=== PATIENT | male | born 1980 | race Caucasian/White ===

== ENCOUNTER 2023-08-31 19:16 | Emergency (ER) | payer MEDICAID, SELFPAY ==
[2023-08-31 19:16] VITALS: BP 145/87; PULSE 96; RESP 17; TEMP 36.1; O2SAT 99; BMI 28.3
--- NOTE | 2023-08-31 19:39 | EX.ED.VIS.EY ---
HPI History of Present Illness Chief Complaint: Eye Problem Informant: patient Onset/Context/Timing Location: Left Eye Narrative Narrative: Patient presents secondary to splashing lacquer thinner in his left eye at the end of his workday. He was cleaning up and some lacquer thinner got splashed into his left eye. He irrigated his eye with a water bottle at the time and then went to a local pharmacy and bought some eyewash and use that. He does report some burning to his left eye with some blurry vision. He does not wear glasses or contacts. He was not wearing safety goggles. [facility] Medical History (Updated 08/31/23 @ 21:[address] Criselda Flanagan MD) Substance abuse Smoker Migraines Medical History no medical history no medical history Home Medications ?Medication ?Instructions ?Recorded ?Last Taken ?Type simvastatin 40 mg/5 mL (8 mg/mL) 40 mg PO QHS 08/31/23 Unknown History oral suspension tamsulosin 0.4 mg capsule (Flomax) 0.4 mg PO DAILY 08/31/23 Unknown History Allergy/AdvReac Type Severity Reaction Status Date / Time No Known Allergies Allergy Verified 08/31/23 19:16 Surgical History (Updated 08/31/23 @ 19:53 by Michelle Friedman) History of appendectomy History of cholecystectomy Social History Smoking Status: Current every day smoker tobacco type: cigarettes ROS ROS ED Constitutional Constitutional ED: Denies chills or fever(s) Eyes Eyes: Reports change in vision left ENT ENT ED: Denies rhinorrhea Cardiovascular Cardiovascular: Denies chest pain Respiratory/Chest Respiratory/Chest: Denies dyspnea Gastrointestinal Gastrointestinal: Denies abdominal pain, nausea or vomiting Genitourinary Genitourinary ED: Denies difficulty urinating or dysuria Musculoskeletal Musculoskeletal: Denies back pain or extremity pain Integumentary Denies Abrasions or rash Neurologic Neurologic: Denies headache(s) or weakness Psychiatric Psychiatric: Denies anxiety or depression EXAM Physical Exam Const Vital Signs: 08/31/23 19:16 Temperature 97 F L Temperature Source Temporal Pulse Rate 96 Respiratory Rate 17 Blood Pressure 145/87 H Blood Pressure Mean 106 Pulse Ox 99 Oxygen Delivery Method Room Air Positive well nourished HEENT HEENT Narrative: Pupils equal and reactive. Extraocular movements intact. Mild injection noted to the left eye. Resp normal respiratory effort and clear to auscultation bilaterally Cardio regular rate and regular rhythm GI non-tender Neuro oriented x3, moves all extremities and no sensory deficits noted Motor Exam: strength 5/5 throughout Skin no wounds Lesions: no lesions MDM MDM MDM Narrative Medical decision making narrative: Tetracaine drops will be instilled to the left eye and I will be irrigated. Following this we will check the pH as well as stain his eye with fluorescein to evaluate for any uptake/corneal injury. History & Record Review Discussion w/independent historian: Patient and Significant other Treatment and Re-Evaluation Narrative: Left eye is irrigated with 500 cc of saline. pH is checked following this and is neutral at 7.4. Fluorescein is applied to the left eye. There is no evidence of fluorescein uptake. Patient discharged home and referred to ophthalmology for follow-up exam within the next 3 days. Patient comfortable with the plan. Return instructions given. Discharge Plan Triage Chief Complaint: Eye Problem ED Provider: Criselda Flanagan Dx/Rx/DC Orders Clinical Impression: Chemical injury of eye Instructions: ED Eye Exposure, Chemical Prescriptions: No Action tamsulosin [Flomax] 0.4 mg capsule 0.4 mg PO DAILY simvastatin 40 mg/5 mL (8 mg/mL) suspension 40 mg PO QHS Primary Care Provider: Arti Madrid Referrals: Ralph Escamilla MD [Med Staff - Active Staff] - 3-5 Days [facility] Doctor,Out of [Non-Staff] - Print Language: Syriac Disposition Disposition: Home, Self Care Discharge Date/Time: 08/31/23 21:59
[2023-08-31] MEDS: Tetracaine 0.5% Ophthalmic Bottle 2 DRP LEFT EYE (21:54)
[2023-08-31] MEDS: Fluorescein 1 MG STRIP 1 STRIP LEFT EYE (21:54)
[2023-08-31 21:55] VITALS: BP 131/70; PULSE 87; RESP 16; TEMP 36.7; O2SAT 97
== END 2023-08-31 21:59 | disposition home or self-care (01) ==
PROVIDERS: Emergency Provider Emergency Medicine; PCP Family Medicine; Visit Provider Emergency Medicine
DX: S05.8X2A Other injuries of left eye and orbit, initial encounter (principal); T54.91XA Toxic effect of unspecified corrosive substance, accidental (unintentional), initial encounter; H53.8 Other visual disturbances; F17.210 Nicotine dependence, cigarettes, uncomplicated; Z79.899 Other long term (current) drug therapy
CPT/HCPCS: 99284; J7030

== ENCOUNTER 2023-12-03 18:39 | Emergency (ER) | payer MEDICAID, SELFPAY ==
[2023-12-03 18:40] VITALS: BP 157/97; PULSE 85; RESP 18; TEMP 36.6; O2SAT 99; BMI 27.5
--- NOTE | 2023-12-03 19:36 | EKG12_ITS ---
Test Reason : CP Blood Pressure : / mmHG Vent. Rate : 080 BPM Atrial Rate : 080 BPM P-R Int : 154 ms QRS Dur : 098 ms QT Int : 360 ms P-R-T Axes : 061 027 032 degrees QTc Int : 415 ms Normal sinus rhythm Normal ECG Confirmed by FRANKY NARVAEZ MD ([id number]), senior editor DOE GARRISON ([id number]) on 12/06/2023 9:27:43 AM Referred By: Confirmed By:FRANKY NARVAEZ MD
[2023-12-03] MEDS: Aspirin 81 MG TAB.CHEW 324 MG PO (19:40)
[2023-12-03 20:00] LABS: Absolute Lymphocyte Count 2.18 X10^3/uL (0.83-4.51); Basophil# 0.08 X10^3/uL; Basophil% 0.8 % (0-1); Eosinophil# 0.13 X10^3/uL; Eosinophils% 1.3 % (0-5); Hematocrit 41.5 % (40-54); Hemoglobin 14.7 g/dL (13.0-16.5); Lymphocyte # 2.18 X10^3/ul (0.83-4.51); Lymphocyte % 21.1 % (19-41); Mean Corp Hgb Conc 35.4 g/dL (32-36); Mean Corpuscular Hgb 31.3 pg (27.0-32.0); Mean Corpuscular Volume 88.5 fL (80-94); Monocyte% 8.7 % (0-10); NRBC Flagged by Analyzer 0 % (0-5); Neutrophil # 6.99 X10^3/uL (2.7-7.7); Neutrophil % 67.7 % (47-70); Platelet Count 209 K/mm3 (150-450); RBC Distribution Width CV 13.1 % (11.6-14.6); RBC Distribution Width SD 41.9 fl (35.1-43.9); Red Blood Count 4.69 M/mm3 (4.6-6.2); White Blood Count 10.3 K/mm3 (4.4-11.0)
--- NOTE | 2023-12-03 20:13 | RAD_ITS ---
INDICATION: chest pain EXAMINATION/TECHNIQUE: X-RAY - XR Chest 2 Views COMPARISON: FINDINGS: LINES/DEVICES: None. LUNGS: No consolidation, edema or effusion. No pneumothorax. MEDIASTINUM AND CARDIOVASCULAR STRUCTURES: Cardiac silhouette not enlarged. Central airways and mediastinal contour are unremarkable. BONES AND SOFT TISSUES: Unremarkable. RAD/Chest PA and Lateral IMPRESSION: No radiographic evidence of acute cardiopulmonary disease. Electronically Signed: Florentino Aparicio DO at 20:24 EDT ,
--- NOTE | 2023-12-03 20:15 | ED.RN ---
Patient transported to imaging on monitor
[2023-12-03 20:19] LABS: Anion Gap 4 (5-15); BUN 14 mg/dL (7-18); BUN/Creat Ratio 17.2 RATIO (10-20); Calcium,Total 9.1 mg/dL (8.5-10.1); Chloride 110 mmol/L (98-107); Creatinine, Serum 0.81 mg/dL (0.70-1.30); EST Glomerular Filtration Rate 109 mL/min (>60); Est Glom Filt Rate - Afr Amer 132 mL/min (>60); Estimated Creatinine Clearance 115.17 ml/min; Glucose 88 mg/dL (74-106); Potassium 3.9 mmol/L (3.5-5.1); Sodium Level 140 mmol/L (136-145); Troponin-I HS 4 pg/mL (3.0-78.0)
--- OUTSIDE RECORDS SUMMARY | 2023-12-03 20:25 | XMS RPT_ITS | CCD ---
Author Organization [facility] Care Team Providers Care Foundry Engineer Name Role Phone Shiraz Echeverria Attending Unavailable Julius, Yonas Referring Unavailable Cook, Yonas Primary Care Unavailable Shiraz Echeverria Attending Unavailable Julius, Yonas Referring Unavailable Cook, Yonas Primary Care Unavailable Estiven Cobb Attending Unavailable Cook, Yonas Referring Unavailable Cook, Yonas Primary Care Unavailable Shiraz Echeverria Attending Unavailable Julius, Yonas Referring Unavailable Julius, Yonas Primary Care Unavailable Yonas Johnson Primary Care Provider Yonas Johnson DO Primary Care Provider JULIUS, YONAS Primary Care Unavailable JULIUS, YONAS Primary Care Unavailable LUCI VARELA Attending Unavailable JULIUS, YONAS Primary Care Unavailable JULIUS, YONAS Primary Care Unavailable ESTIVEN COBB Referring Unavailable ESTIVEN COBB Attending Unavailable JULIUS, YONAS Primary Care Unavailable JULIUS, YONAS Primary Care Unavailable ESTIVEN COBB Attending Unavailable JULIUS, YONAS Primary Care Unavailable Yonas Johnson MD Primary Care Provider YONAS JOHNSON Primary Care Unavailable SHARDA NIEVES Attending Unavailable HILL HAINES Admitting Unavailable YONAS JOHNSON Primary Care Unavailable JEAN MARIE RICARDO Attending Unavailable YONAS JOHNSON Primary Care Unavailable Allergies Allergy Classification Reported Allergen(s) Allergy Type Date of Onset Reaction(s) Facility (5 sources) Codeine; Translations: [CODEINE] Drug Allergy 06-29-19 04 [facility] Work Phone: (1 source) Amitriptyline Drug Allergy 10-08-19 22 [facility] Work Phone: (1 source) Amoxicillin Drug Allergy 10-08-19 22 Nausea And Vomiting [facility] (1 source) Sulfamethoxazole / Trimethoprim Drug Allergy 10-08-19 [facility] Work Phone: (1 source) Budesonide-Formotero l Fumarate Propensity to adverse reactions to drug 10-08-19 Dizziness or Vertigo [facility] Work Phone: Medications Current Medications Medication Drug Class(es) Dates Sig (Normalized) Sig (Original) acetaminophen 325 mg / oxyCODONE hydrochloride 5 mg oral tablet (1 source) Opioid Agonist Start: 10-15-2021 End: 10-20-2021 oxyCODONE-acetamino phen (PERCOCET) 5-325 MG per tablet Indications: Soft tissue mass Take 1 tablet by mouth every 6 hours as needed for Pain for up to 5 days. Intended supply: 5 days. Take lowest dose possible to manage pain 5 tablet 0 10/15/2021 10/20/2021 Active ALPRAZolam 0.25 mg disintegrating oral tablet (1 source) Benzodiazepine Start: 10-15-2021 ALPRAZolam (NIRAVAM) dissolvable tablet 0.25 mg calcium chloride 0.0014 meq/ml / potassium chloride 0.004 meq/ml / sodium chloride 0.103 meq/ml / sodium lactate 0.028 meq/ml injectable solution (2 sources) Start: 10-15-2021 lactated ringers infusion cephalexin 500 mg oral capsule (1 source) Cephalosporin Antibacterial Start: 09-30-2021 take 1 capsule by mouth every twelve hours cephALEXin (KEFLEX) 500 MG capsule TAKE 1 CAPSULE BY MOUTH EVERY 12 HOURS FOR 15 DAYS 0 09/30/2021 Active 1 ml diphenhydrAMINE hydrochloride 50 mg/ml cartridge (1 source) Histamine-1 Receptor Antagonist Start: 10-15-2021 End: 10-15-2021 diphenhydrAMINE (BENADRYL) injection 12.5 mg 1 ml HYDROmorphone hydrochloride 1 mg/ml cartridge (2 sources) Opioid Agonist Start: 10-15-2021 HYDROmorphone (DILAUDID) injection 0.5 mg Start: 10-15-2021 HYDROmorphone (DILAUDID) injection 0.25 mg labetalol (NORMODYNE;TRANDATE) injection 5 mg (1 source) Start: 10-15-2021 labetalol (NORMODYNE;TRANDATE) injection 5 mg 10 ml lidocaine hydrochloride 10 mg/ml injection (1 source) Antiarrhythmic , Amide Local Anesthetic Start: 10-15-2021 End: 10-15-2021 lidocaine PF 1 % injection 1 mL 1 ml meperidine hydrochloride 25 mg/ml cartridge (1 source) Opioid Agonist Start: 10-15-2021 meperidine (DEMEROL) injection 12.5 mg Multiple Vitamins-Minerals (MULTIVITAMIN & MINERAL PO) (2 sources) Multiple Vitamins-Minerals (MULTIVITAMIN & MINERAL PO) Take by mouth 0 Active 2 ml ondansetron 2 mg/ml injection (1 source) Serotonin-3 Receptor Antagonist Start: 10-15-2021 End: 10-15-2021 ondansetron (ZOFRAN) injection 4 mg oxyCODONE (1 source) Opioid Agonist Start: 10-15-2021 End: 10-15-2021 oxyCODONE (ROXICODONE) immediate release tablet 5 mg simvastatin 40 mg oral tablet (1 source) HMG-CoA Reductase Inhibitor Start: 09-22-2021 take 1 tablet by mouth once daily at bedtime simvastatin (ZOCOR) 40 MG tablet TAKE 1 TABLET BY MOUTH ONCE DAILY AT BEDTIME 0 09/22/2021 Active 5 ml sodium chloride 9 mg/ml injection (9 sources) Start: 10-15-2021 0.9 % sodium chloride bolus Start: 10-15-2021 0.9 % sodium c hloride infusion Start: 10-15-2021 sodium chlorid e flush 0.9 % injection 5-40 mL tamsulosin hydrochloride 0.4 mg oral capsule (3 sources) alpha-Adrenergic Evelyn Start: 04-30-2023 take 1 capsule by mouth once daily tamsulosin (FLOMAX) 0.4 mg Take 1 capsule by mouth once daily. 30 capsule 04/30/2023 Active Start: 09-22-2021 take 1 capsule by mo [facility] once daily tamsulosin (FLOMAX) 0.4 MG capsule TAKE 1 CAPSULE BY MOUTH ONCE DAILY 0 09/22/2021 Active therapeutic multivitamin-min erals (THERA-M PLUS) 9 mg iron-400 mcg tablet (2 sources) therapeutic mult ivitamin-minerals (THERA-M PLUS) 9 mg iron-400 mcg tablet Take 1 tablet by mouth once daily. Active Completed/Discontinued Medications Medication Drug Class(es) Dates Sig (Normalized) Sig (Original) acetaminophen 500 mg oral tablet (1 source) Start: 10-15-2021 End: 10-15-2021 acetaminophen (TYLENOL) tablet 1,000 mg Start: 10-15-2021 End: 10-15-2021 acetaminophen (TYLENOL) tabl et 1,000 mg famotidine 20 mg oral tablet (1 source) Histamine-2 Receptor Antagonist Start: 10-15-2021 End: 10-15-2021 famotidine (PEPCID) tablet 20 mg polyethylene glycol 3350 893385 mg / potassium chloride 2970 mg / sodium bicarbonate 6740 mg / sodium chloride 5860 mg / sodium sulfate 96727 mg powder for oral solution (1 source) Osmotic Laxative Start: 10-25-2023 End: 10-25-2023 peg 3350-Electrolytes (GOLYTELY) 236-22.74-6.74 -5.86 gram suspension Indications: Encounter for screening for malignant neoplasm of colon Take 4,000 mL by mouth one time only for 1 dose. Refer to printed prep instructions from your provider. 4000 mL 10/25/2023 10/25/2023 Problems Active Problems Problem Classification Problem Date Documented Da te Episodic/Chronic Allergic reactions (4 sources) Allergy status to other drugs, medicaments and biological substances status; Translations: [Allergy status to narcotic agent status] Onset: 08-19-2017 Episodic External cause codes: Struck by; against (2 sources) Striking against or struck by other objects, initial encounter; Translations: [Striking against or struck by other objects, init encntr] Onset: 02-09-2018 Open wounds of extremities (2 sources) Puncture wound without foreign body, right foot, initial encounter; Translations: [Puncture wound without foreign body, right foot, init encntr] Onset: 02-09-2018 Episodic Other connective tissue disease (2 sources) Presence of unspecified orthopedic joint implant; Translations: [Presence of unspecified orthopedic joint implant] Onset: 02-09-2018 Chronic Other connective tissue disease (2 sources) Pain in right foot; Translations: [Pain in right foot] Onset: 02-09-2018 Episodic Other connective tissue disease (1 source) Mass of soft tissue; Translations: [Other specified soft tissue disorders] Episodic Other screening for suspected conditions (not mental disorders or infectious disease) (1 source) Patient encounter status; Translations: [Encounter for screening for malignant neoplasm of colon] 10-25-2023 Episodic Residual codes; unclassified (2 sources) Acquired absence of other specified parts of digestive tract; Translations: [Acquired absence of other specified parts of digestive tract] Onset: 02-09-2018 Episodic Substance-related disorders (4 sources) Nicotine dependence, cigarettes, uncomplicated; Translations: [Nicotine dependence, unspecified, uncomplicated] Onset: 08-19-2017 Chronic Unclassified (2 sources) Addiction Problem; Translations: [Addiction Problem] Onset: 06-10-2023 Past or Other Problems Problem Classification Problem Date Documented Date Episodic/Chronic Abdominal hernia (2 sources) Right inguinal hernia ; Translations: [Unilateral inguinal hernia, without obstruction or gangrene, not specified as recurrent] Onset: 11-16-2014 11-16-2014 Episodic Other connective tissue disease (2 sources) Pain in right hand; Translations: [Pain in right hand] Onset: 08-19-2017 Episodic Residual codes; unclassified (1 source) Postoperative state; Translations: [Other specified postprocedural states] Onset: 12-05-2014 Resolved: 11-04-2017 11-04-2017 Episodic Residual codes; unclassified (1 source) Postoperative state; Translations: [Post-operative state] Onset: 12-05-2014 Resolved: 11-04-2017 11-04-2017 Septicemia (except in labor) (3 sources) Sepsis; Translations: [Sepsis, unspecified organism] Onset: 04-28-2023 Resolved: 09-11-2023 09-11-2023 Episodic Skin and subcutaneous tissue infections (7 sources) Cellulitis, unspecified; Translations: [Cellulitis of right upper limb] Onset: 08-18-2017 Episodic Urinary tract infections (1 source) Urinary tract infection, site not specified; Translations: [Sepsis secondary to UTI (HCC) (HCC)] Onset: 04-28-2023 Episodic Results Test Name Value Interpretation Reference Range [facility] ([facility] ) PABLITO SOLIMNA ([id number]) 1980 M Date Time Provider Department 10/25/23 3:30 PM SHARDA NIEVES During your visit today, we recorded the following information about you: Temperature Pulse Respiration Blood pressure 98.2 degrees 96/minute 14/minute 130/86 Weight Height 83.9 kg 1.753 m Sharda Nieves APRN.CNP 10/26/2023 8:28 AM Signed HISTORY AND PHYSICAL Pablito Soliman : 1980 REFERRING PHYSICIAN: No referring provider defined for this encounter. CHIEF COMPLAINT: Patient presents with: Consult HPI: Pablito is a 42 year old male referred for endoscopy. Pablito notes due for screening colonoscopy. Pablito denies abdominal pain.. Pablito notes occasional diarrhea. +hx of cholecystectomy bowels are frequent and soft depending on what he eats, specifically greasy foods Pablito denies constipation. Pablito denies a change in bowel habits. Pablito denies melena. Pablito denies bright red blood per rectum. Pablito denies hemorrhoids. Pablito denies heartburn. Pablito denies dysphagia. Pablito denies a history of ulcers/ peptic ulcer disease. +hx of esophageal dilatation- denies any similar symptoms currently Denies family history of colon issues. Hx of IV drug abuse AND meth use- pt was admitted to the hospital in April 2023 for sepsis and patient has been drug free since. Pablito has undergone prior endoscopy. Had an EGD with dilatation completed with [facility] in the past- we have requested these records. No colonoscopy Current Outpatient Medications Medication Sig tamsulosin (FLOMAX) 0.4 mg Take 1 capsule by mouth once daily. therapeutic multivitamin-minerals (THERA-M PLUS) 9 mg iron-400 mcg tablet Take 1 tablet by mouth once daily. No current facility-administered medications for this visit. ALLERGIES: Codeine PAST MEDICAL HISTORY Diagnosis Date ADHD Depression Drug abuse and dependence (HCC) Sober since April 2023 PAST SURGICAL HISTORY Procedure Laterality Date APPENDECTOMY Around 18 years old EXTRACTION ERUPTED TOOTH/EXR All four FOOT SURGERY HX FOOT SURGERY HX Right Two surgeries FOOT SURGERY HX Left One surgery HAND SURGERY HX Right REMOVAL GALLBLADDER REPAIR OF SHOULDER Left Three surgeries FAMILY HISTORY Problem Relation Age of Onset No Known Problems Mother No Known Problems Father No Known Problems Brother No Known Problems Maternal Grandmother No Known Problems Maternal Grandfather No Known Problems Paternal Grandmother No Known Problems Paternal Grandfather Social History Tobacco Use Smoking status: Former Types: Cigarettes Smokeless tobacco: Never Vaping Use Vaping status: current everyday user Substances: Nicotine, Flavoring Devices: Disposable Substance Use Topics Alcohol use: Not Currently Drug use: Not Currently Types: Marijuana, Crystal Meth, Cocaine, Heroin Comment: Sober for April 2023 REVIEW OF SYMPTOMS: The review of systems data was entered by the nurse and reviewed by pr Nursing Notes: Yolande Burgos LPN 10/25/2023 3:52 PM Signed REVIEW OF SYSTEMS: General: The patient denies fatigue, denies weight loss, denies weight gain, denies feeling hot, and denies feelings of cold. Eyes: The patient denies glaucoma, denies eye injury/surgery, does not wear glasses or contacts. Ear/Nose/Throat: The patient notes allergies, notes hayfever, denies ear infections, and denies bloody noses. Cardiovascular: The patient denies chest pain, denies heart disease, denies high blood pressure,denies cardiac stent, denies prior heart attack, denies irregular heart beat, notes high cholesterol, denies poor circulation, denies heart failure, other cardiac issues, denies claudication, denies cold feet, denies peripheral arterial stent. Respiratory: The patient denies tuberculosis, denies pneumonia, denies frequent cough, denies pulmonary embolism, denies shortness of breath, and denies coughing up blood. Gastrointestinal: The patient denies difficulty swallowing, denies acid reflux, denies ulcers, denies vomiting, denies jaundice/hepatitis, denies gallbladder problems, denies black or tarry stools, denies hemorrhoids, denies bleeding from rectum, denies diverticulitis, denies constipation, denies diarrhea, denies loss of stool control, and notes hernias. Kidney/Bladder: The patient denies kidney stones, denies urine infections, and denies bloody urine. Skin: The patient denies a history of skin cancer, denies bleeding/changing moles, and denies a history of skin rash. Neurologic: The patient denies a history of epilepsy/convulsions, denies headaches, denies head/spinal injuries, and denies stroke/TIA. Psychiatric: The patient denies psychiatric medications, notes depression, and denies voices, notes history of substance abuse. Endocrine: The patient denies thyroid disorders, de (more content not included)... [facility] Note created in error [facility] 36 Note created in error [facility] Progress Noteon 06-21-2023 Progress Note Clinician called Pt on 06/21/23 coordinated care. Pt disclosed that he would have to delay start date of transfer from AM CD IOP to PM CD IOP due to scheduling issues. Pt reports that he would return call to clinician regarding updates to his availability. [facility] [id number] 06-10-2023 [id number] Admission Certification I certify that this patient would require a higher level of care if intensive outpatient program (IOP) services were not provided, that the patient needs a minimum of 9 hours of IOP services per week, that the services will be furnished under the care of a physician, and under a written plan of treatment authorized and approved by the physician. [facility] Behavioral Health Treatment Planon 06-10-2023 Behavioral Health Treatment Plan Initial Level of Care Placed: 2.1 Family Members/Friends Who Can Be Involved In Treatment Name Relationship Release obtained? (if no, explain) None Services Service(s) Provided (if group, include name) Primary Provider Frequency Date Added Discharge Date Addiction Med IOP DENISE Sapp 9 hours per week 06/10/23 Individual and/or Family Therapy DENISE Sapp As clinically needed 06/10/23 Urine Drug Screen DENISE Sapp Once weekly; random 06/10/[address] Monitoring [address]. Alberts Admission 06/10/23 Consideration for Discharge: Improve Level of Functioning and Decrease Symptoms [facility] CARECOORDon 06-10-2023 CARECOORD Admission Note Substance Abuse IOP Date: 06/10/2023 Start Time: 530p End Time: 530p Pt admitted to Substance Abuse IOP on this date. He reported understanding and agreement with Pt rights/responsibilitie s, group rules/expectations, and confidentiality. He signed all consents for Tx. Reviewed presenting problem and goals for Tx with the Pt. 3 Treatment Plan problems developed with the Pt and opened. Pt was oriented to the unit and daily group paperwork. He is scheduled to begin in the group this evening at 5:30pm. Can patient identify as being an alcoholic/addict? Yes Does patient verbalize understanding of the disease concept of addiction? Yes Is the patient willing to commit to abstinence? Yes Does He accept responsibility for the addiction? Yes Is He able to identify and process warning signs and triggers for possible relapse? No Does the patient have complicated psychiatric or medical issues? No Do they have a plan in place to address these issues? N/A Is the patient med-compliant? Yes Does the patient have a sober support system? No Are any of these supports engaged in, or oriented to, 12-Step programming? N/A Do they have a sponsor? No If yes, how often do they talk to their sponsor? na Are they attending regular 12-Step meetings? Yes; How many/week? unknown Can they identify high risk situations? No Can they identify warning signs and triggers? No Can they identify coping skills for recovery? No [facility] OUT[facility] PHYSICIAN ORDERS Admit to: [] Partial Hospitalization Program [] Psych Intensive Outpatient Program [x] Addiction Medicine Intensive Outpatient Program []Relapse Prevention - Psych [] Recovery Readiness []Relapse Prevention - Addiction [] Impaired Professionals Aftercare with individual sessions [] Other: 2. Client to attend: []Day [x]Evening []Afternoon # of sessions per week: 3 Anticipated Length of Stay: 16-20 Sessions 3. This level of care is needed: [x] To reduce or control psychiatric symptoms to prevent relapse of hospitalization [x] To improve Client's level of functioning [] To maintain current level of functioning [] To accurately diagnose client condition [x] Because there is a reasonable expectation that improvement will result with this level of care 4. Admitting Diagnosis(es): F15.20 5. Allergies: Patient has no known allergies. 6. Client to Attend and Participate in the following activities: [x] Group Therapy [x] Education relevant to client condition [] Individualized Activity Therapy [x] Individual Therapy as needed [x] Family Therapy as needed [] Other (please identify): 7. Lab Work: [] CBC [] TSH [] U/A [] Urine HcG<55 with intact uterus [] GTT [] Valproic Acid Level on DATE [] Depakote Level on NA [] Pierz Level on DATE [] Other: NA 8. Urine Drug Screening: [x] on admission [x] random [] frequency (identify): for the following substances: amphetamines, barbiturates, benzodiaepines, cocaine, methadone, opiates, oxycodone/oxymorphone, PCP, buprenorphine screen, THC-MTTHC, fentanyl and ethanol. Rationale for UDS: [x] Monitoring sobriety/level of use [x] Treatment compliance [x] Behavioral Indicators [] Other (identify): 9. Breathalyzer: [] on admission [x] random [] frequency (identify): 9. Additional: 10. Physician: Normal [facility] ETHYL GLUCURONIDE SCREEN, UR INEon 06-10-2023 ETHYL GLUCURONIDE, URINE Negative Normal Negative [facility] Comment on above: Result Comment: CATRACHITO Dumont COMMENTS: Ethyl Glucuronide has been screened by Immunoassay at a 500 ng/mL threshold. POSITIVE results are not confirmed by a more specific alternative method unless requested. If confirmation is needed, request confirmation under separate order. NOTE: These results are for medical treatment only. Analysis performed using non-forensic procedures. This test has not been cleared by the [place] Food and Drug Administration (FDA). The FDA has determined that such clearance or approval is not necessary. The performance characteristics have been determined by the clinical laboratories of [facility]. Performed By: #### L [id number], [id number] ####Banking Representative: PERNELL ZAVALA ([id number])[address] GROUPNOTEon 06-10-2023 GROUPNOTE [facility] Group Therapy Documentation Program: Addiction Medicine Intensive Outpatient Program Group Type: Addiction IOP Group Date: 06/10/2023 Facilitators: Skye Bloom Department: [facility] Addiction IOP Group No: 1 Start Time: 5:30 PM No. of Participants: 7 End [facility]: [facility] Topic: Treatment Progress Review Summary of Group Activity: Patient reviewed treatment plans and shared how they know they are making progress. Patients then completed check in. Patient's level of participation in group process: Engaged in group process and Interactive with other group members Therapeutic Intervention utilized with Patient: Empathic listening, Cognitive Behavioral Therapy (CBT), and Motivational interviewing techniques Patient's Response to Intervention: Patient introduced himself to the group and shared about his ongoing court issues. He cited legal issues as a barrier to finding employment. Mental Status Exam: Affect and Mood: appropriate Behavior: Pleasant, Cooperative, Engaging, and Interactive Cognition: Intact and Oriented X4 Additional comments: na Progress Towards Goals: Moderate Next Step(s): Continue with current services Additional Comments (optional): Late arrival no billing Group No: 2 Start Time: 630p No. of Participants: 7 End Time: 720p Group Topic: 28 Days Summary of Group Activity: Patients watched film on stage of change and discussed relatable content. TN was used to encourage change thinking through discussion about the main characters changes in thinking. Patient's level of participation in group process: Engaged in group process Therapeutic Intervention utilized with Patient: Motivational interviewing techniques Patient's Response to Intervention: Patient was attentive to film and interacted with peers Mental Status Exam: Affect and Mood: appropriate Behavior: Pleasant, Cooperative, Engaging, and Interactive Cognition: Intact and Oriented X4 Additional comments: na Progress Towards Goals: Moderate Next Step(s): Continue with current services Additional Comments (optional): Group No: 3 Start Time: 730p No. of Participants: 7 End Time: 8:20 PM Group Topic: 28 days Summary of Group Activity: Patients watched film on stage of change and discussed relatable content. TN was used to encourage change thinking through discussion about the main characters changes in thinking. Patients engaged in weekend planning. Patient's level of participation in group process: Engaged in group process Therapeutic Intervention utilized with Patient: Motivational interviewing techniques Patient's Response to Intervention: Patient is going to [employer] and attending a meeting this weekend. Mental Status Exam: Affect and Mood: appropriate Behavior: Pleasant, Cooperative, Engaging, and Interactive Cognition: Intact and Oriented X4 Additional comments: na Progress Towards Goals: Moderate Next Step(s): Continue with current services Additional Comments (optional): Normal [facility] T PANELon 06-10-2023 Amphetamines Ql (U) Negative Normal Negative [facility] Comment on above: Performed By: #### L [id number], [id number] ####Banking Representative: PERNELL ZAVALA ([id number])[facility] [place] [address] BARBITURATES Negative Normal Negative [facility] Comment on above: Performed By: #### L [id number], [id number] ####Banking Representative: PERNELL ZAVALA ([id number])[facility] ([facility])[address] [place] [address] Benzodiazepines Ql (U) Negative Normal Negative [facility] Comment on above: Performed By: #### L [id number], [id number] ####Banking Representative: PERNELL ZAVALA ([id number])[facility] ([facility])[address] [place] [address] BUPRENORPHINE SCREEN Negative Normal Negative [facility] Comment on above: Performed By: #### L [id number], [id number] ####Banking Representative: PERENLL ZAVALA ([id number])[facility] ([facility])[address] [place] [address] Cocaine Ql (U) Negative Normal Negative [facility] Comment on above: Performed By: #### L [id number], [id number] ####Banking Representative: PERNELL ZAVALA ([phone])[facility])[address] [place] [address] ETHANOL-ETOHO Negative Normal Negative [facility] Comment on above: Result Comment: ORDArnav R COMMENTS: The expected value for the drugs listed above is Negative. The following drugs or drug groups have been screened for by Immunoassay at the following thresholds: Amphetamine class(1000ng/mL) Barbituates(200ng/mL) Benzodiazepines(200ng/mL) Cocaine(300ng/mL) Ethanol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 Hospitalization: Treatment Team: Attending Provider: Jean Marie Ricardo MD Primary Service: MENDY De La Paz Patient Condition @ Discharge: Excellent Discharge Disposition: Home/Self Care PHYSICAL EXAM: Discharge Physical Exam: VITAL SIGNS: BP 125/76 Pulse 72 Temp 36.5 ?C (97.7 ?F) (Oral) Resp 16 Ht 175.3 cm (5' 9 ) Wt 86.2 kg (190 lb) SpO2 98% BMI 28.06 kg/m? GENERAL: Alert, no distress, cooperative SKIN: Skin color, texture, turgor normal. No rashes or lesions. Information Provided to Patient: Given at bedside Discharge Medications: Please see After Visit Summary Med Reconciliation for accurate list of discharge medications. If any questions please contact discharging physician. Future Appointments: Follow Up with PCP: Yonas Johnson, DO Appointments for Next 45 Days None TIME OF CARE : The physician spent 45 minutes was spent in coordinating this discharge including time spent educating patient, examining patient, ordering medications, and completing necessary paperwork SIGNATURE: Jean Marie Ricardo MD PATIENT NAME: Pablito Soliman DATE: April 30, 2023 TIME: 1:15 PM PAGER/CONTACT #: Elviar Keren Alexis [facility] ED NOTEon 04-29-2023 ED NOTE HNO ID: [id number] Author: CHERELLE CROUCH Tech Service: Emergency Medicine Author Type: Civil Engineering Technician Type: ED Notes Filed: 04/29/2023 17:06 Note Text: Pt given dinner tray Reuben [facility] HISTORY PHYSICALon HISTORY PHYSICAL HNO ID: [id number] Author: HILL HAINES DO Service: Hospital Medicine Author Type: Physician Type: H&P Filed: 04/29/2023 14:44 Note Text: DEPARTMENT OF HOSPITAL MEDICINE HISTORY AND PHYSICAL EXAM SERVICE DATE: 04/29/2023 SERVICE TIME: 0700 Primary Care Physician: Yonas Johnson DO NIGHT AND WEEKEND COVERAGE: [place] COVERAGE: After 7pm, please call cross cover pager #[phone] Subjective CHIEF COMPLAINT: Dysuria and back pain HPI: This is a 42 year old male with BPH, HLD who presents with whole body aches and difficulty peeing. About 1 week ago lower back pain that worsened 2 days ago that his whole body hurt and felt really sick. Urine dark orange, difficultly starting urine. Pain with urination. No cough, SOB, or chest pain Does use IV drugs. Trying to stop. Meth use. Uses clean needles. No erythema of skin. A sepsis alert was initiated on the patient as the patient was noted to be tachycardic, and have an elevated blood cell count with a urinary tract source of infection. The patient was given IV fluids, analgesia, started on IV antimicrobial therapy with ceftriaxone. CT imaging of the abdomen and pelvis shows no acute abnormality. There are punctate bilateral intrarenal calculi that are not complicating. No hydronephrosis. No perinephric stranding. Prostate gland is enlarged. There is no obvious bladder mass or calculus. No past medical history on file. PAST SURGICAL HISTORY Procedure Laterality Date FOOT SURGERY HX No family history on file. Social History Tobacco Use Smoking status: Never Substance Use Topics Alcohol use: No Drug use: No MEDICATIONS: Reviewed (Not in a hospital admission) ALLERGIES Allergen Reactions Codeine REVIEW OF SYSTEM: ROS reviewed Objective PHYSICAL EXAM: BP 125/69 Pulse 83 Temp (Src) 97.8 (Oral) Resp 16 Ht 5' 9 (1.75m) Wt 185 lb (83.9kg) SpO2 98% BMI 27.31 kg/(m2). O2 Therapy: Room Air Physical Exam Performed: General: NAD, well developed, vitals as above HENT: Normocephalic, atraumatic, mucous membranes moist Eyes: No scleral icterus, extraocular movements intact, Conjuctivae normal, PERRL Cardiovascular: RRR, No murmur, no gallops, radial pulses 2+ bilaterally, no edema Pulmonary: Respiratory effort normal, no resp distress. CTAB, no wheezes, rhonchi or rales. Abdominal: No distention, abdomen soft. No mass. Mild to palpation suprapubic MSK: normal range of motion, no joint swelling Skin: Warm and dry Neurological: No focal deficits presents. CN 2-12 grossly intact. Psych: Alert, oriented x 3, appropriate mood Lines, Drains, and Airways Line Duration Peripheral 04/28/231952 [facility] Left Antecubital 20 Gauge <1 day DATA: Diagnostic tests reviewed for today's visit: Most recent labs and imaging results. Assessment/Plan Principal Problem: Sepsis (HCC) (POA: Yes) Assessment AND Plan: Secondary to complicated UTI/prostatitis Continue ceftriaxone 2 g and monitor cultures. Hx of prostatitis in past treated outpatient. IVDA - in groups and counseling. Working on quitting, encouraged HLD - simvastatin 40 daily BPH - flomax 0.4, did have urology outpatient at one point, recommend f/u given enlarged prostate and recurrent prostatitis Resolved Problems: * No resolved hospital problems. * Medication and Non-Pharmacologic VTE Prophylaxis/Anticoagul ants Anticoagulant AND Antiplatelet Medications (From admission, onward) Start Dose Route Frequency Last Action Ordered Stop 04/29/23 0900 enoxaparin 40 mg injection (LOVENOX) (Medical Risk Categories) 40 mg SUBCUTANEOUS EVERY 24 HOURS Given, 04/28 1014 04/29/23 0848 -- VTE Prophylaxis: VTE prophylaxis appropriate Disposition: Home Plan of care discussed with: Provider, RN, Patient SIGNATURE: Hill Haines DO PATIENT NAME: Pablito Soliman DATE: April 29, 2023 TIME: 2:16 PM etx [id number] Normal [facility] ALLIED HEALTHon 04-28-2023 ALLIED HEALTH HNO ID: [id number] Author: TERRENCE MADSEN RT(R) Service: Radiology Author Type: Technologist Type: Allied Health Filed: 04/28/2023 20:14 Note Text: Radiology Service Progress Note PATIENT NAME: Pablito Soliman DATE OF SERVICE: April 28, 2023 TIME: 8:14 PM PATIENT IDENTITY VERIFICATION COMPLETED USING TWO (2) IDENTIFIERS: Name and Date of confirmed by patient verbally and Name and Date of confirmed by identification band. FALL SCREENING: Has the patient had 2 falls in the last year or 1 fall with injury or currently using an Ambulatory Assistive Device (Walker, Cane, Wheelchair, Crutches, etc.)? Emergency Room Patient: Screened in ED PATIENT GENDER DATA: Male PATIENT RELEVANT IMPLANT DATA REVIEWED: Yes PATIENT PRESENTS WITH AN IMPLANTABLE OR ATTACHED PATTERN WEAVER: No RADIOLOGY DEPARTMENT: CT; Exam(s) Completed: Abdomen/Pelvis PERIPHERAL IV DATA: Inpatient: see LDA documentation SIGNED BY: Terrence Madsen RT(R) April 28, 2023 8:14 PM Normal [facility] Bacteria Bld Culton 04-28-19 24 Bacteria identified Cx Nom (Bld) CULTURE, BLOOD: No growth 5 days Normal [facility] Comment on above: Performed By: #### 5 8410-2 #### [facility] CLIA [id number] [address] [place] [address] Performed By: #### 2 4321-2 #### [facility] CLIA [id number] [address] CBC W Auto Differential pane l (Bld)on 04-28-2023 Basophils (Bld) [#/Vol] 0.06 10*3/uL Normal <0.11 [facility] Comment on above: Order Comment: Speci men Type: BLOOD SPECIMEN Ordering Facility: [facility] Address: [address] [place] [address] Performed By: #### 5 7021-8 #### [facility] CLIA [id number] [address] [place] [address] Basophils/100 WBC (Bld) 0.3 % Normal [facility] Comment on above: Order Comment: Speci men Type: BLOOD SPECIMEN Ordering Facility: [facility] Address: [address] [place] [address] Performed By: #### 5 7021-8 #### [facility] CLIA [id number] [address] [place] [address] Differential cell count method Nom (Bld) Auto Normal [facility] Comment on above: Order Comment: Speci men Type: BLOOD SPECIMEN Ordering Facility: [facility] Address: [address] [place] [address] Performed By: #### 5 7021-8 #### [facility] CLIA [id number] [address] OF [facility] Eosinophils (Bld) [#/Vol] 10*3/uL Normal <0.46 [facility] Comment on above: Order Comment: Speci men Type: BLOOD SPECIMEN Ordering Facility: [facility] Address: [address] [place] [address] Performed By: #### 5 7021-8 #### [facility] CLIA [id number] [address] Eosinophils/100 WBC (Bld) 0.0 % Normal [facility] Comment on above: Order Comment: Speci men Type: BLOOD SPECIMEN Ordering Facility: [facility] Address: [address] [place] [address] Performed By: #### 5 7021-8 #### [facility] CLIA [id number] [address] Erythrocyte distribution width (RBC) [Ratio] 13.2 % Normal 11.5-15.0 [facility] Comment on above: Order Comment: Speci men Type: BLOOD SPECIMEN Ordering Facility: [facility] Address: [address] [place] [address] Performed By: #### 5 7021-8 #### [facility] CLIA [id number] [address] Hematocrit (Bld) [Volume fraction] 41.0 % Normal 39.0-51.0 [facility] Comment on above: Order Comment: Speci men Type: BLOOD SPECIMEN Ordering Facility: [facility] Address: [facility] [place] [place] [address] Performed By: #### 5 7021-8 #### [facility] CLIA [id number] [address] [place] [address] [place] Hemoglobin (Bld) [Mass/Vol] 14.3 g/dL Normal 13.0-17.0 [facility] Comment on above: Order Comment: Speci men Type: BLOOD SPECIMEN Ordering Facility: [facility] Address: [address] [place] [address] Performed By: #### 5 7021-8 #### [facility] CLIA [id number] [address] [place] Immature granulocytes (Bld) [#/Vol] 0.15 10*3/uL High <0.10 [facility] Comment on above: Order Comment: Speci men Type: BLOOD SPECIMEN Ordering Facility: [facility] Address: [address] [place] [address] Performed By: #### 5 7021-8 #### [facility] CLIA [id number] [address] Immature granulocytes/100 WBC (Bld) 0.6 % Normal [facility] Comment on above: Order Comment: Speci men Type: BLOOD SPECIMEN Ordering Facility: [facility] Address: [address] [place] [address] Performed By: #### 5 7021-8 #### [facility] CLIA [id number] [address] [place] Lymphocytes (Bld) [#/Vol] 1.17 10*3/uL Normal 1.00-4.00 [facility] Comment on above: Order Comment: Speci men Type: BLOOD SPECIMEN Ordering Facility: [facility] Address: [address] [place] [address] Performed By: #### 5 7021-8 #### [facility] CLIA [id number] [address] [place] Lymphocytes/100 WBC (Bld) 5.0 % Normal [facility] Comment on above: Order Comment: Speci men Type: BLOOD SPECIMEN Ordering Facility: [facility] Address: [address] [place] [address] Performed By: #### 5 7021-8 #### [facility] CLIA [id number] [address] MCH (RBC) [Entitic mass] 30.4 pg Normal 26.0-34.0 [facility] Comment on above: Order Comment: Speci men Type: BLOOD SPECIMEN Ordering Facility: [facility] Address: [address] [place] [address] Performed By: #### 5 7021-8 #### [facility] CLIA [id number] [address] [place] MCHC (RBC) [Mass/Vol] 34.9 g/dL Normal 30.5-36.0 [facility] Comment on above: Order Comment: Speci men Type: BLOOD SPECIMEN Ordering Facility: [facility] Address: [address] [place] [address] Performed By: #### 5 7021-8 #### [facility] CLIA [id number] [address] MCV (RBC) [Entitic vol] 87.0 fL Normal 80.0-100.0 [facility] Comment on above: Order Comment: Speci men Type: BLOOD SPECIMEN Ordering Facility: [facility] Address: [address] [place] [address] Performed By: #### 5 7021-8 #### [facility] CLIA [id number] [address] Monocytes (Bld) [#/Vol] 1.42 10*3/uL High <0.87 [facility] Comment on above: Order Comment: Speci men Type: BLOOD SPECIMEN Ordering Facility: [facility] Address: [address] [place] [address] Performed By: #### 5 7021-8 #### [facility] CLIA [id number] [address] Monocytes/100 WBC (Bld) 6.1 % Normal [facility] Comment on above: Order Comment: Speci men Type: BLOOD SPECIMEN Ordering Facility: [facility] Address: [address] [place] [address] Performed By: #### 5 7021-8 #### [facility] CLIA [id number] [address] [place] Neutrophils (Bld) [#/Vol] 20.57 10*3/uL High 1.45-7.50 [facility] Comment on above: Order Comment: Speci men Type: BLOOD SPECIMEN Ordering Facility: [facility] Address: [address] [place] [address] Performed By: #### 5 7021-8 #### [facility] CLIA [id number] [address] [place] Neutrophils/100 WBC (Bld) 88.0 % Normal [facility] Comment on above: Order Comment: Speci men Type: BLOOD SPECIMEN Ordering Facility: [facility] Address: [address] [place] [address] Performed By: #### 5 7021-8 #### [facility] CLIA [id number] [address] [place] Nucleated RBC (Bld) [#/Vol] 10*3/uL Normal <0.01 [facility] Comment on above: Order Comment: Speci men Type: BLOOD SPECIMEN Ordering Facility: [facility] Address: [address] [place] [address] Performed By: #### 5 7021-8 #### [facility] CLIA [id number] [address] Nucleated RBC/100 WBC (Bld) [Ratio] 0.0 /100 WBC Normal [facility] Comment on above: Order Comment: Speci men Type: BLOOD SPECIMEN Ordering Facility: [facility] Address: [address] [place] [address] Performed By: #### 5 7021-8 #### [facility] CLIA [id number] [address] [place] Platelet mean volume (Bld) [Entitic vol] 10.6 fL Normal 9.0-12.7 [facility] Comment on above: Order Comment: Speci men Type: BLOOD SPECIMEN Ordering Facility: [facility] Address: [address] [place] [address] Performed By: #### 5 7021-8 #### [facility] CLIA [id number] [address] Platelets (Bld) [#/Vol] 209 10*3/uL Normal 150-400 [facility] Comment on above: Order Comment: Speci men Type: BLOOD SPECIMEN Ordering Facility: [facility] Address: [address] [place] [address] Performed By: #### 5 7021-8 #### [facility] CLIA [id number] [address] RBC (Bld) [#/Vol] 4.71 10*6/uL Normal 4.20-6.00 [facility] Comment on above: Order Comment: Speci men Type: BLOOD SPECIMEN Ordering Facility: [facility] Address: [address] [place] [address] Performed By: #### 5 7021-8 #### [facility] CLIA [id number] [address] WBC (Bld) [#/Vol] 23.38 10*3/uL High 3.70-11.00 [facility] Comment on above: Order Comment: Speci men Type: BLOOD SPECIMEN Ordering Facility: [facility] Address: [address] [place] [address] Performed By: #### 5 7021-8 #### [facility] CLIA [id number] [address] OF [facility] CK SerPl-cCncon 04-28-2023 CK [Catalytic activity/Vol] 41 U/L Low 51-298 [facility] Comment on above: Order Comment: Speci men Type: BLOOD SPECIMEN Ordering Facility: [facility] Address: [address] [place] [address] Performed By: #### 2 4321-2 #### [facility] CLIA [id number] [address] ABD/PEL WO IVCONon 2023 CT ABD/PEL WO IVCON * * *Final Report* * * DATE OF EXAM: Apr 28 2023 8:16PM [facility] 0531 - CT ABD/PEL WO IVCON / PROCEDURE REASON: Flank pain, kidney stone suspected * * * * Physician Interpretation * * * * EXAMINATION: CT ABDOMEN AND PELVIS WITHOUT IV CONTRAST CLINICAL HISTORY: Fatigue, weakness, difficulty urinating. Bilateral flank pain. TECHNIQUE: Non-IV contrast imaging of the abdomen and pelvis was performed using standard technique, scanning from just above the dome of the diaphragm to the symphysis pubis. Unenhanced imaging is limited for the evaluation of some intra-abdominal and pelvic pathology. MQ: CTAPWO_3 Contrast: IV: None : ml of CT Radiation dose: Integrated Dose-length product (DLP) for this visit = 499 mGy*cm. CT Dose Reduction Employed: Automated exposure control(AEC) and iterative recon COMPARISON: 07/26/2012. RESULT: Abdomen / Pelvis: Liver: There may be mild fatty infiltration. Biliary: S/p cholecystectomy. Spleen: No splenomegaly. Pancreas: Unremarkable. Adrenals: No mass. Kidneys: Punctate bilateral intrarenal calculus. No hydronephrosis. No ureteral calculus. No obvious renal mass on this unenhanced study. GI Tract: No bowel dilation. The appendix is not visualized. Lymph Nodes: No lymphadenopathy. Mesentery/peritoneum: No ascites. Retroperitoneum: No mass. Vasculature: No abdominal aortic or iliac artery aneurysm. Pelvis: No mass or ascites. Prostate gland is enlarged. No obvious bladder mass or calculus. Bones/Soft Tissues: No acute abnormality. Lower thorax: Unremarkable. Barrel Roller (topogram) images: No additional findings. IMPRESSION: 1. No acute abnormality identified. 2. Punctate bilateral intrarenal calculus. Reprographics Associate: PSCB Transcribe Date/Time: Apr 28 2023 8:21P Dictated by : LEDY MCCABE MD This examination was interpreted and the report reviewed and electronically signed by: LEDY MCCABE MD on Apr 28 2023 8:32PM EST [id number] Normal [facility] Comprehensive metabolic 2000 panelon 04-28-2023 Albumin [Mass/Vol] 4.1 g/dL Normal 3.9-4.9 [facility] Comment on above: Order Comment: Speci men Type: BLOOD SPECIMEN Ordering Facility: [facility] Address: [address] [place] [address] Performed By: #### 2 4321-2 #### [facility] CLIA [id number] [address] ALP [Catalytic activity/Vol] 126 U/L High 38-113 [facility] Comment on above: Order Comment: Speci men Type: BLOOD SPECIMEN Ordering Facility: [facility] Address: [address] [place] [address] Performed By: #### 2 4321-2 #### [facility] CLIA [id number] [address] ALT With P-5'-P [Catalytic activity/Vol] 33 U/L Normal 10-54 [facility] Comment on above: Order Comment: Speci men Type: BLOOD SPECIMEN Ordering Facility: [facility] Address: [address] [place] [address] Performed By: #### 2 4321-2 #### [facility] CLIA [id number] [address] Anion gap [Moles/Vol] 13 mmol/L Normal 9-18 [facility] Comment on above: Order Comment: Speci men Type: BLOOD SPECIMEN Ordering Facility: [facility] Address: [address] [place] [address] Performed By: #### 2 4321-2 #### [facility] CLIA [id number] [address] AST With P-5'-P [Catalytic activity/Vol] 18 U/L Normal 14-40 [facility] Comment on above: Order Comment: Speci men Type: BLOOD SPECIMEN Ordering Facility: [facility] Address: [address] [place] [address] Performed By: #### 2 4321-2 #### [facility] CLIA [id number] [address] [place] [address] [place] Bilirubin [Mass/Vol] 1.2 mg/dL Normal 0.2-1.3 [facility] Comment on above: Order Comment: Speci men Type: BLOOD SPECIMEN Ordering Facility: [facility] Address: [address] [place] [address] Performed By: #### 2 4321-2 #### [facility] CLIA [id number] [address] [place] [address] [place] Calcium [Mass/Vol] 9.2 mg/dL Normal 8.5-10.2 [facility] Comment on above: Order Comment: Speci men Type: BLOOD SPECIMEN Ordering Facility: [facility] Address: [address] [place] [address] Performed By: #### 2 1-2 #### [facility] CLIA [id number] [address] [place] [address] [place] Chloride [Moles/Vol] 97 mmol/L Normal 97-105 [facility] Comment on above: Order Comment: Speci men Type: BLOOD SPECIMEN Ordering Facility: [facility] Address: [address] [place] [address] Performed By: #### 2 1-2 #### [facility] CLIA [id number] [address] [place] [address] [place] CO2 [Moles/Vol] 25 mmol/L Normal 22-30 [facility] Comment on above: Order Comment: Speci men Type: BLOOD SPECIMEN Ordering Facility: [facility] Address: [address] [place] [address] Performed By: #### 2 1-2 #### [facility] CLIA [id number] [address] [place] [address] [place] Creatinine [Mass/Vol] 0.96 mg/dL Normal 0.73-1.22 [facility] Comment on above: Order Comment: Speci men Type: BLOOD SPECIMEN Ordering Facility: [facility] Address: [address] [place] [address] Performed By: #### 2 4321-2 #### [facility] CLIA [id number] [address] [place] [address] [place] Creatinine and Glomerular filtration rate.predicted panel (S/P/Bld) 100 mL/min/1.73m??? Normal >=60 [facility] Comment on above: Order Comment: Sarah carlson Type: BLOOD SPECIMEN Ordering Facility: [facility] Address: [address] [place] [address] Result Comment: Pearl mated Glomerular Filtration Rate (eGFR) is calculated using the 2020 CKD-EPI creatinine equation. This equation utilizes serum creatinine, sex, and age as parameters. The creatinine assay has traceable calibration to isotope dilution-mass spectrometry. Refer to KDIGO guidelines for clinical interpretation. In patients with unstable renal function, e.g. those with acute kidney injury, the eGFR may not accurately reflect actual GFR. Performed By: #### 2 4321-2 #### [facility] CLIA [id number] [address] [place] [address] [place] Glucose [Mass/Vol] 139 mg/dL High 74-99 [facility] Comment on above: Order Comment: Sarah carlson Type: BLOOD SPECIMEN Ordering Facility: [facility] Address: [address] [place] [address] Result Comment: The [place] Diabetes Association (ADA) provides guidance for cutoff values for fasting glucose and random glucose. The ADA defines fasting as no caloric intake for at least 8 hours. Fasting plasma glucose results between 100 to 125 mg/dL indicate increased risk for diabetes (prediabetes). Fasting plasma glucose results greater than or equal to 126 mg/dL meet the criteria for diagnosis of diabetes. In the absence of unequivocal hyperglycemia, results should be confirmed by repeat testing. In a patient with classic symptoms of hyperglycemia or hyperglycemic crisis, random plasma glucose results greater than or equal to 200 mg/dL meet the criteria for diagnosis of diabetes. Reference: Standards of Medical Care in Diabetes 2016, [place] Diabetes Association. Diabetes Care. 2016.39(Suppl 1). Performed By: #### 2 4321-2 #### [facility] CLIA [id number] [address] [place] [address] [place] Potassium [Moles/Vol] 4.1 mmol/L Normal 3.7-5.1 [facility] Comment on above: Order Comment: Speci men Type: BLOOD SPECIMEN Ordering Facility: [facility] Address: [address] [place] [address] Performed By: #### 2 4321-2 #### [facility] CLIA [id number] [address] Protein [Mass/Vol] 6.8 g/dL Normal 6.3-8.0 [facility] Comment on above: Order Comment: Speci men Type: BLOOD SPECIMEN Ordering Facility: [facility] Address: [address] [place] [address] Performed By: #### 2 4321-2 #### [facility] CLIA [id number] [address] STATES OF [facility] Sodium [Moles/Vol] 135 mmol/L Low 136-144 [facility] Comment on above: Order Comment: Speci men Type: BLOOD SPECIMEN Ordering Facility: [facility] Address: [address] [place] [address] Performed By: #### 2 4321-2 #### [facility] CLIA [id number] [address] [place] Urea nitrogen [Mass/Vol] 14 mg/dL Normal 9-24 [facility] Comment on above: Order Comment: Speci men Type: BLOOD SPECIMEN Ordering Facility: [facility] Address: [address] [place] [address] Performed By: #### 2 4321-2 #### [facility] CLIA [id number] [address] [place] ECG COMPLETEon 04-28-2023 ECG COMPLETE Ventricular Rate : 1 11 BPM Atrial Rate : 111 BPM P-R Interval : 132 ms QRS Duration : 92 ms Q-T Interval : 310 ms QTC Calculation(Bazett) : 421 ms Calculated P Chester : 56 degrees Calculated R Chester : 32 degrees Calculated T Chester : 30 degrees SINUS TACHYCARDIA INCOMPLETE RIGHT BUNDLE BRANCH BLOCK BORDERLINE ECG NO PREVIOUS ECGS AVAILABLE Confirmed by MD SHIRLEY, PERNELL ([id number]) on 10/26/2023 3:48:28 AM NAME : PABLITO SOLIMAN PID : [id number] : 1980 Gender : Male Race : ORD : [id number] Procedure Date : Apr 28 2023 20:31:19 Edit Date : Oct 26 2023 03:48:29 Diagnosis: SINUS TACHYCARDIA INCOMPLETE RIGHT BUNDLE BRANCH BLOCK BORDERLINE ECG NO PREVIOUS ECGS AVAILABLE Confirmed by MD WATSON AMY ([id number]) on 10/26/2023 3:48:28 AM Test Reason : Palpitations Location : 4 : [facility] Overread By : MD WATSON AMY Edited By : MD WATSON AMY Referred By : , Acquired by : CHARLI HA [facility] ED NOTEon 04-28-2023 ED NOTE HNO ID: [id number] Author: ELLEN GOMEZ RN Service: Emergency Medicine Author Type: Registered Nurse Type: ED Notes Filed: 04/28/2023 19:45 Note Text: Patient's identity verified by patient stating name, Patient's identity verified by patient stating date, Patient's identity verified by hospital ID bracelet. Pt placed on compliance monitor. No ectopy noted. Alarms on and reviewed. Pt also attached to continuous pulse ox and disposable BP cuff. Rhythm sinus tach noted Normal [facility] ED PROV NOTEon 04-28-2023 ED PROV NOTE HNO ID: [id number] Author: KAYCE PORTILLO DO Service: ? Author Type: Physician Type: ED Provider Notes Filed: 04/28/2023 21:38 Note Text: I performed a history and physical examination of the patient and discussed the management with the resident. I reviewed the resident's note and agree with the documented findings and plan of care. The patient is a 42 old male with a past medical history significant for BPH on Flomax, hyperlipidemia, nephrolithiasis, IV drug abuse with methamphetamines presenting to the emergency department endorsing lower back pain and dysuria. Patient reports that he has been having aching pain in his bilateral lower back ongoing for the past week. Today, he noticed some cold sweats, subjective fevers, and myalgias. He also reports increasing difficulty with urination. He states his urine has been dark to red in color. He also adds that he has run out of his Flomax. On initial exam, patient is noted to have a low-grade temp of 99.9 ?F and is tachycardic into the 130s. HEENT exam within the normal limits. Trachea is midline. Neck is supple. Heart is tachycardic and regular, S1 and S2 are auscultated. Lungs are clear auscultation bilaterally. Respirations are symmetric and unlabored. Abdomen is soft, nontender, nondistended. No suprapubic tenderness. No peritoneal signs. No midline pulsatile mass. The patient has bilateral flank tenderness upon palpation. No midline neck or back step-offs, crepitus, or deformities. Pulses are palpable in all 4 extremities. No lower extremity edema. Skin is warm and dry. Neurological exam is nonfocal. Differential diagnoses considered include cystitis, nephrolithiasis, pyelonephritis, prostatitis. Diagnostic studies have been reviewed. Urine is positive for blood and UTI. CK is normal at 41. Lactate is not elevated at 1.1. Blood cell count is elevated at 23.38. Metabolic panel shows no concerning abnormalities. Creatinine is 0.96. A sepsis alert was initiated on the patient as the patient was noted to be tachycardic, slightly tachypneic, and have an elevated blood cell count with a urinary tract source of infection. The patient was given IV fluids, analgesia, started on IV antimicrobial therapy with ceftriaxone. CT imaging of the abdomen and pelvis shows no acute abnormality. There are punctate bilateral intrarenal calculi that are not complicating. No hydronephrosis. No perinephric stranding. Prostate gland is enlarged. There is no obvious bladder mass or calculus. The patient symptoms appear to be secondary to UTI/prostatitis. The patient is agreeable to admitted to the hospital for continued management, IV antimicrobial therapy and to await results of cultures. He has remained stable throughout ED course. KAYCE PORTILLO 04/28/23 2138 Normal [facility] ED PROV NOTE HNO ID: [id number] Author: KAYCE PORTILLO DO Service: Hospital Medicine Author Type: Physician Type: ED Provider Notes Filed: 04/30/2023 15:53 Note Text: ED Provider Note Patient Name: Pablito Soliman : 1980 SERVICE DATE: 04/28/23 History Patient presents with: Flank Pain: Pt. Reports bilateral flank pain and decreased urine output x's 1 week. PT. Reports chills. Pt. Reports dark colored urine. HPI Yovanny Soliman is a 42-year-old male past medical history of hyperlipidemia, BPH on Flomax, personal and family history of of kidney stones and IVDU (last use 2 weeks ago, methamphetamine). He reports onset of lower back pain 1 week ago which she attributed to musculoskeletal pain. 2 days ago the pain worsened and started to include subjective fevers, whole body myalgias, headache, cold sweats, shortness of breath with exertion (currently reducing cigarette smoking, about 3 cigarettes/day), constipation. This pain has been associated with increased difficulty urinating, and darkish reddish urine. He does recall being told that he had an elevation in something related to his prostate but is unable to recall any further details about this. No past medical history on file. PAST SURGICAL HISTORY Procedure Laterality Date FOOT SURGERY HX No family history on file. Social History Tobacco Use Smoking status: Never Smokeless tobacco: Not on file Substance and Sexual Activity Alcohol use: No Drug use: No Sexual activity: Not on file ALLERGIES Allergen Reactions Codeine Review of Systems Constitutional: Positive for chills, diaphoresis, fatigue and fever. HENT: Negative for sinus pressure and sore throat. Respiratory: Positive for shortness of breath and wheezing. Negative for cough, chest tightness and stridor. Cardiovascular: Negative for chest pain, palpitations and leg swelling. Gastrointestinal: Positive for constipation. Negative for abdominal pain, blood in stool, diarrhea, nausea and vomiting. Genitourinary: Positive for decreased urine volume, difficulty urinating and flank pain. Negative for dysuria, frequency, hematuria and urgency. Musculoskeletal: Positive for back pain and myalgias. Negative for neck pain and neck stiffness. Skin: Negative for rash and wound. Neurological: Positive for headaches. Negative for dizziness, tremors, seizures, syncope, weakness and numbness. Physical Exam Vitals [04/28/23 1740] BP Pulse Temp Temp src Resp SpO2 Weight Height 144/81 (!) 133 37.7 ?C (99.9 ?F) Oral 20 99 % 83.9 kg (185 lb) 1.753 m (5' 9 ) Physical Exam Constitutional: General: He is not in acute distress. Appearance: He is ill-appearing. HENT: Mouth/Throat: Pharynx: Oropharynx is clear. Eyes: General: No scleral icterus. Extraocular Movements: Extraocular movements intact. Cardiovascular: Rate and Rhythm: Regular rhythm. Tachycardia present. Heart sounds: Normal heart sounds. No murmur heard. Pulmonary: Effort: Pulmonary effort is normal. No respiratory distress. Breath sounds: Normal breath sounds. No wheezing or rhonchi. Chest: Chest wall: No tenderness. Abdominal: General: Abdomen is flat. Palpations: Abdomen is soft. Tenderness: There is no abdominal tenderness. There is right CVA tenderness and left CVA tenderness. There is no guarding or rebound. Skin: General: Skin is warm. Capillary Refill: Capillary refill takes less than 2 seconds. Neurological: General: No focal deficit present. Mental Status: He is alert and oriented to person, place, and time. Severe Sepsis Identified Date: 04/28/23 Severe Sepsis Identified Time: 1927 Severe Sepsis Identified Date: 04/28/23 Severe Sepsis Identified Time: 1927 Diagnostic Testing ED Labs Ordered and Reviewed COMP METABOLIC PANEL - Abnormal; Notable for the following components: Result Value Ref Range Alkaline Phosphatase 126 (*) 38 - 113 U/L Glucose 139 (*) 74 - 99 mg/dL Sodium 135 (*) 136 - 144 mmol/L All other components within normal limits CBC + DIFF - Abnormal; Notable for the following components: WBC 23.38 (*) 3.70 - 11.00 k/uL Abs Neut 20.57 (*) 1.45 - 7.50 k/uL Abs Hemphill 1.42 (*) <0.87 k/uL Abs Immature Gran 0.15 (*) <0.10 k/uL All other components within normal limits CK CREATINE KINASE - Abnormal; Notable for the following components: CK 41 (*) 51 - 298 U/L All other components within normal limits URINALYSIS WITH MICROSCOPIC, REFLEX CULTURE LACTIC ACID,POC(AK) COVID AND INFLUENZA A/B AND RSV NAAT, EXPEDITED BLOOD CULTURE BLOOD CULTURE Procedures MDM / Disposition / Plan MDM Patient seen after triage in room with sinus tachycardia, neutrophilic leukocytosis with a WBC count of 23, triggering sepsis alert. Patient was able to provide urine sample in room which did appear reddish in color. Blood cultures ordered and then started on empiric ceftriaxone. Patient's presentation most likely concerning for uros (more content not included)... Normal [facility] ED Triage Noteon 04-28-2023 ED Triage Note HNO ID: [id number] Author: GIUSEPPE AMAYA PA-C Service: Emergency Medicine Author Type: Physician Business Systems Consultant Type: ED Triage Notes Filed: 04/28/2023 17:48 Note Text: ED INTAKE NOTE Patient Name: Pablito Soliman Service Date: 04/28/23 BRIEF HPI: 42-year-old male presenting for fatigue weakness dark urine and difficulty urinating. States has been sick for about a 1 week but got significantly worse yesterday and today. He is also in bilateral flank pain. BRIEF EXAM: Awake and Alert Tachycardic, regular rhythm Clear to auscultation bilaterally Abdominal soft no pain on palpation INTAKE WORKUP: Bloodwork: CBC CMP CK Urinalysis Viral swab No diagnosis found. SIGNATURE: Giuseppe Amaya PA-C Normal [facility] FLUABV+SARS-CoV-2+RSV Pnl Re sp TIFFANIE+probeon 04-28-2023 FLUABV+SARS-CoV-2+RS V Pnl Resp TIFFANIE+probe COVID 19 RESULT: Not detected The method used is RT-PCR or an equivalent NAAT method. Reference Range(the expected result in uninfected individuals): Not detected INFLUENZA A PCR: Not detected INFLUENZA B PCR: Not detected RSV PCR: Not detected Normal [facility] Comment on above: Performed By: #### 2 4321-2 #### [facility] CLIA [id number] [address] [place] [address] [place] Urinalysis complete pnl Uron 04-28-2023 Urinalysis complete panel (U) COLOR: [place] CLARITY: Turbid GLUCOSE, URINE: Negative BILIRUBIN, URINE: Negative KETONES, URINE: Negative SPECIFIC GRAVITY, UR: 1.030 HEMOGLOBIN/BLOOD, UR: 3+ PH, URINE: 6.0 PROTEIN, URINE: 1+ UROBILINOGEN: Normal NITRITES: Negative LEUKEST: 500 José Miguel/uL WBC, URINE: >25 /HPF RBC, URINE: >25 /HPF BACTERIA: Few SQUAMOUS EPITHELIAL CELLS: Few ORGANISM ID: 1 >=100,000 CFU/ml Escherichia coli ORGANISM ID: 1 (ESCHERICHIA COLI) -- ANTIBIOTIC INTERPRETATION KAREN STATUS REFERENCE RANGE -- Ampicillin R >16 F Susceptible <=8 , Intermediate >8 , Resistant >16 Cefazolin S 2 F Susceptible 0-16 , Intermediate <0 or >16 , Resistant >16 For uncomplicated urinary tract infections, cefazolin results can be used to predict susceptibility or resistance to cephalexin. Ceftriaxone S <=1 F Susceptible <=1 , Intermediate >1 , Resistant >=4 Cefepime S <=1 F Susceptible <=2 , Susceptible-Dose Dependent >2 , Resistant >=16 Ertapenem S <=0.25 F Susceptible <=0.5 , Intermediate >.5 , Resistant >1 Meropenem S <=0.5 F Susceptible <=1 , Intermediate >1 , Resistant >2 Aztreonam S <=2 F Susceptible <=4 , Intermediate >4 , Resistant >=16 Ampicillin/Sulbact I 16 F Piperacillin/Tazobac S <=2 F Gentamicin S <=2 F Susceptible <=4 , Intermediate >4 , Resistant >8 Trimeth sulfameth R >2 F Ciprofloxacin I 0.5 F Susceptible <0.5 , Intermediate >=.5 , Resistant >=1 Nitrofurantoin S <=16 F Susceptible <=32 , Intermediate >32 , Resistant >64 Abnormal [facility] Comment on above: Order Comment: Speci men Type: BLOOD SPECIMEN Ordering Facility: [facility] Address: [address] [place] [address] Performed By: #### 2 4321-2 #### [facility] CLIA [id number] [address] [place] [address] [place] Basic metabolic 2000 panelon 12-09-2022 Anion gap [Moles/Vol] 6 mmol/L Low 9-18 [facility] Comment on above: Order Comment: Speci men Type: BLOOD SPECIMEN Ordering Facility: [facility] Address: [address] [place] [address] Performed By: #### 2 4321-2 #### [facility] CLIA [id number] [address] [place] [address] [place] Calcium [Mass/Vol] 9.1 mg/dL Normal 8.5-10.2 [facility] Comment on above: Order Comment: Speci men Type: BLOOD SPECIMEN Ordering Facility: [facility] Address: [address] [place] [address] Performed By: #### 2 4321-2 #### [facility] CLIA [id number] [address] [place] [address] [place] Chloride [Moles/Vol] 102 mmol/L Normal 97-105 [facility] Comment on above: Order Comment: Speci men Type: BLOOD SPECIMEN Ordering Facility: [facility] Address: [address] [place] [address] Performed By: #### 2 4321-2 #### [facility] CLIA [id number] [address] [place] [address] [place] CO2 [Moles/Vol] 32 mmol/L High 22-30 [facility] Comment on above: Order Comment: Speci men Type: BLOOD SPECIMEN Ordering Facility: [facility] Address: [address] [place] [address] Performed By: #### 2 4321-2 #### [facility] CLIA [id number] [address] [place] [address] [place] Creatinine [Mass/Vol] 0.89 mg/dL Normal 0.73-1.22 [facility] Comment on above: Order Comment: Speci men Type: BLOOD SPECIMEN Ordering Facility: [facility] Address: [address] [place] [address] Result Comment: Use of this assay is not recommended for patients undergoing treatment with phenindione, due to the potential for falsely depressed results. Performed By: #### 2 4321-2 #### [facility] CLIA [id number] [address] [place] [address] [place] Creatinine and Glomerular filtration rate.predicted panel (S/P/Bld) 108 mL/min/1.73m??? Normal >=60 [facility] Comment on above: Order Comment: Sarah carlson Type: BLOOD SPECIMEN Ordering Facility: [facility] Address: [address] [place] [address] Result Comment: Pearl mated Glomerular Filtration Rate (eGFR) is calculated using the 2020 CKD-EPI creatinine equation. This equation utilizes serum creatinine, sex, and age as parameters. The creatinine assay has traceable calibration to isotope dilution-mass spectrometry. Refer to KDIGO guidelines for clinical interpretation. In patients with unstable renal function, e.g. those with acute kidney injury, the eGFR may not accurately reflect actual GFR. Performed By: #### 2 4321-2 #### [facility] CLIA [id number] [address] [place] [address] [place] Glucose [Mass/Vol] 95 mg/dL Normal 74-99 [facility] Comment on above: Order Comment: Sarah carlson Type: BLOOD SPECIMEN Ordering Facility: [facility] Address: [address] [place] [address] Result Comment: The [place] Diabetes Association (ADA) provides guidance for cutoff values for fasting glucose and random glucose. The ADA defines fasting as no caloric intake for at least 8 hours. Fasting plasma glucose results between 100 to 125 mg/dL indicate increased risk for diabetes (prediabetes). Fasting plasma glucose results greater than or equal to 126 mg/dL meet the criteria for diagnosis of diabetes. In the absence of unequivocal hyperglycemia, results should be confirmed by repeat testing. In a patient with classic symptoms of hyperglycemia or hyperglycemic crisis, random plasma glucose results greater than or equal to 200 mg/dL meet the criteria for diagnosis of diabetes. Reference: Standards of Medical Care in Diabetes 2016, [place] Diabetes Association. Diabetes Care. 2016.39(Suppl 1). Performed By: #### 2 4321-2 #### [facility] CLIA [id number] [address] [place] [address] [place] Potassium [Moles/Vol] 3.6 mmol/L Low 3.7-5.1 [facility] Comment on above: Order Comment: Speci men Type: BLOOD SPECIMEN Ordering Facility: [facility] Address: [facility] [place] [address] Performed By: #### 2 4321-2 #### [facility] CLIA [id number] [address] [place] [facility] Sodium [Moles/Vol] 140 mmol/L Normal 136-144 [facility] Comment on above: Order Comment: Speci men Type: BLOOD SPECIMEN Ordering Facility: [facility] Address: [address] [place] [address] Performed By: #### 2 1-2 #### [facility] CLIA [id number] [address] [place] Urea nitrogen [Mass/Vol] 11 mg/dL Normal 9-24 [facility] Comment on above: Order Comment: Speci men Type: BLOOD SPECIMEN Ordering Facility: [facility] Address: [address] [place] [address] Performed By: #### 2 1-2 #### [facility] CLIA [id number] [address] CBC panel Auto (Bld)on 12-09 Erythrocyte distribution width (RBC) [Ratio] 13.1 % Normal 11.5-15.0 [facility] Comment on above: Order Comment: Speci men Type: BLOOD SPECIMEN Ordering Facility: [facility] Address: [address] [place] [address] Performed By: #### 2 1-2 #### [facility] CLIA [id number] [address] Hematocrit (Bld) [Volume fraction] 44.7 % Normal 39.0-51.0 [facility] Comment on above: Order Comment: Speci men Type: BLOOD SPECIMEN Ordering Facility: [facility] Address: [address] [place] [address] Performed By: #### 2 4321-2 #### [facility] CLIA [id number] [address] Hemoglobin (Bld) [Mass/Vol] 15.6 g/dL Normal 13.0-17.0 [facility] Comment on above: Order Comment: Speci men Type: BLOOD SPECIMEN Ordering Facility: [facility] Address: [address] [place] [address] Performed By: #### 2 4321-2 #### [facility] CLIA [id number] [address] MCH (RBC) [Entitic mass] 31.1 pg Normal 26.0-34.0 [facility] Comment on above: Order Comment: Speci men Type: BLOOD SPECIMEN Ordering Facility: [facility] Address: [address] [place] [address] Performed By: #### 2 4321-2 #### [facility] CLIA [id number] [address] MCHC (RBC) [Mass/Vol] 34.9 g/dL Normal 30.5-36.0 [facility] Comment on above: Order Comment: Speci men Type: BLOOD SPECIMEN Ordering Facility: [facility] Address: [address] [place] [address] Performed By: #### 2 4321-2 #### [facility] CLIA [id number] [address] MCV (RBC) [Entitic vol] 89.2 fL Normal 80.0-100.0 [facility] Comment on above: Order Comment: Speci men Type: BLOOD SPECIMEN Ordering Facility: [facility] Address: [address] [place] [address] Performed By: #### 2 4321-2 #### [facility] CLIA [id number] [address] Platelet mean volume (Bld) [Entitic vol] 10.0 fL Normal 9.0-12.7 [facility] Comment on above: Order Comment: Speci men Type: BLOOD SPECIMEN Ordering Facility: [facility] Address: [address] [place] [address] Performed By: #### 2 4321-2 #### [facility] CLIA [id number] [address] Platelets (Bld) [#/Vol] 244 10*3/uL Normal 150-400 [facility] Comment on above: Order Comment: Speci men Type: BLOOD SPECIMEN Ordering Facility: [facility] Address: [address] [place] [address] Performed By: #### 2 4321-2 #### [facility] CLIA [id number] [address] RBC (Bld) [#/Vol] 5.01 10*6/uL Normal 4.20-6.00 [facility] Comment on above: Order Comment: Speci men Type: BLOOD SPECIMEN Ordering Facility: [facility] Address: [address] [place] [address] Performed By: #### 2 4321-2 #### [facility] CLIA [id number] [address] WBC (Bld) [#/Vol] 10.26 10*3/uL Normal 3.70-11.00 [facility] Hospital Comment on above: Order Comment: Speci men Type: BLOOD SPECIMEN Ordering Facility: [facility] Address: [address] [place] [address] Performed By: #### 2 4321-2 #### [facility] CLIA [id number] [address] ED NOTEon 12-09-2022 ED NOTE HNO ID: [id number] Author: Sade Palomo RN Service: Emergency Medicine Author Type: Registered Nurse Type: ED Notes Filed: 12/09/2022 9:18 PM Note Text: Patient given discharge instructions and information about medication. Patient verbalized understanding. Patient given first dose of antibiotics. Patient left in stable condition with significant other. Normal [facility] ED NOTE HNO ID: [id number] Author: Brisa June RN Service: ? Author Type: Registered Nurse Type: ED Notes Filed: 12/09/2022 7:45 PM Note Text: Pt to ED for wound on L arm, wound is red and swollen. Normal [facility] ED PROV NOTEon 12-09-2022 ED PROV NOTE HNO ID: [id number] Author: Sourav Hoskins MD Service: Emergency Medicine Author Type: Physician Type: ED Provider Notes Filed: 12/09/2022 8:55 PM Note Text: Patient suffered lacerations to his right forearm last week at work. He had the wounds Steri-Stripped and glued. He had multiple wounds at that time. He has now noticed that 2 of the wounds are becoming edematous so he comes in for evaluation. On his mid forearm he does have 2 lacerations. There is some erythema surrounding the lacerations and the area is edematous. There is no drainage. There is no fluctuance. There is no crepitance. SOURAV HOSKINS 12/09/222054 Normal [facility] ED PROV NOTE HNO ID: [id number] Author: Vikash Butler APRN.CNP Service: Emergency Medicine Author Type: Nurse Practitioner Type: ED Provider Notes Filed: 12/09/2022 9:27 PM Note Text: ED Provider Note Patient Name: Yovanny Soliman : 1980 SERVICE DATE: 12/09/22 History Patient presents with: Wound Infection: L arm 42-year-old male presents the ED today with a abscess to his left posterior arm. Patient admits to being an IV drug user. States that this abscess has been there for a few days. Has been feeling fatigued tired and just not right. Attempted draining the abscess at home on his own with little relief. Denies any nausea vomiting denies shortness of breath. No chest pain. No known fever but has felt chilled. No headache or dizziness History provided by: Patient No past medical history on file. PAST SURGICAL HISTORY Procedure Laterality Date FOOT SURGERY HX No family history on file. Social History Tobacco Use Smoking status: Never Smokeless tobacco: Not on file Substance and Sexual Activity Alcohol use: No Drug use: No Sexual activity: Not on file ALLERGIES Allergen Reactions Codeine Review of Systems Constitutional: Positive for chills and fatigue. HENT: Negative. Respiratory: Negative. Cardiovascular: Negative. Gastrointestinal: Negative. Genitourinary: Negative. Musculoskeletal: Negative. Skin: Positive for wound. Abscess left forearm Neurological: Negative. Psychiatric/Behavioral : Negative. Physical Exam Vitals [12/09/221942] BP Pulse Temp Temp src Resp SpO2 Weight Height 144/76 (!) 95 36.2 ?C (97.2 ?F) Temporal 18 98 % 83.9 kg (185 lb) -- Physical Exam Constitutional: Appearance: Normal appearance. Eyes: Extraocular Movements: Extraocular movements intact. Cardiovascular: Rate and Rhythm: Normal rate. Pulses: Normal pulses. Pulmonary: Effort: Pulmonary effort is normal. Abdominal: General: Abdomen is flat. Musculoskeletal: General: Normal range of motion. Cervical back: Normal range of motion. Skin: General: Skin is warm. Findings: Abscess and erythema present. Comments: Approximately 2 cm indurated tissue abscess to the posterior aspect of left forearm. Neurological: General: No focal deficit present. Mental Status: He is alert and oriented to person, place, and time. Psychiatric: Mood and Affect: Mood normal. Behavior: Behavior normal. Diagnostic Testing ED Labs Ordered and Reviewed - No data to display Procedures ED Course / Clinical Impression Clinical Impressions as of 12/09/222104 Abscess MDM / Disposition / Plan 42-year-old male presents the ED today with a abscess to his left posterior arm. Patient admits to being an IV drug user. States that this abscess has been there for a few days. Has been feeling fatigued tired and just not right. Attempted draining the abscess at home on his own with little relief. Denies any nausea vomiting denies shortness of breath. No chest pain. No known fever but has felt chilled. No headache or dizziness Physical exam there is an approximately 2 cm firm indurated abscess to the posterior aspect of patient's left forearm. Forearm is warm slight swelling noted to the entirety of the forearm in comparison to right. Radial pulse palpated. Multiple scarring areas of needle insertion. Top of abscess scabbed. No drainage. CBC was obtained to evaluate for leukocytosis along with lactate. Lactate was negative. No leukocytosis 10.26. Due to indurated tissue unable to perform IANDD. I will prescribe patient clindamycin to cover for MRSA. Give his first dose here in ED. Patient will be given a paper prescription and discharged home. He was agreeable with this discharge plan. I did educated him on worsening signs symptoms of infection and the urgency or emergency to return to the ED. Patient verbalized understanding was in stable condition ambulated out independently. Management All Labs ED Labs Ordered and Reviewed BASIC METABOLIC PNL - Abnormal Result Value Glucose 95 BUN 11 Creatinine 0.89 Sodium 140 Potassium 3.6 (*) Chloride 102 CO2 32 (*) Anion Gap 6 (*) Calcium, Total 9.1 Estimated Glomerular Filtration Rate 108 CBC - Normal WBC 10.26 RBC 5.01 Hemoglobin 15.6 Hematocrit 44.7 MCV 89.2 MCH 31.1 MCHC 34.9 RDW-CV 13.1 Platelet Count 244 MPV 10.0 LACTIC ACID/LACTATE - Normal Lactate 1.6 Disposition The patient was discharged. Counseled patient regarding lab results. SIGNATURE: Vikash Butler APRN.PILE HEADER This note was partially generated using [employer] voice recognition system. VIKASH BUTLER 12/09/222126 Normal [facility] Lactate (Bld) [Moles/Vol]on 12-09-2022 Lactate [Moles/Vol] 1.6 mmol/L Normal 0.5-2.2 [facility] Comment on above: Order Comment: Speci men Type: BLOOD SPECIMEN Ordering Facility: [facility] Address: [address] [place] [address] Performed By: #### 2 4321-2 #### [facility] CLIA [id number] [address] [place] [address] [place] [facility] REPORTon 2 Ordered by an unspecified provider. JULIA DUMONT Op Noteon 10-15-2021 Op Note Date: 10/15/2021 PreOp Dx: Soft Tissue Mass of Back and Soft Tissue Mass of Left Flank PostOp Dx: Same Procedure: 1) Excision of Soft Tissue Mass of Back, Subfascial, 4 cm 2) Excision of Soft Tissue Mass of Flank, Subcutaneous, 3.5 cm Surgical Procedure Classification: Surgical Procedure Classification [x] Elective (EL) [] Urgent (UR) [] Emergent (EM) [] Trauma (TR) Wound Classification: Surgical Wound Classification [x] Class I/Clean (CL) [] Class II/Clean-Contaminated (CC) [] Class III/Contaminated (C) [] ClassIV/Dirty-Infected (D) Complications: None Specimen(s): 1) Soft Tissue Mass of Left Flank 2) Soft Tissue Mass of Back Notes EBL: 10cc Transfusion: none Fluids: See anesthesia record Drains: none Crocker: none Special Meds: 2g Ancef, half percent Marcaine with epinephrine Surgeon: Lisbeth Keenan MD Assist: SA Anesthesia: MAC Indications: This is a 40-year-old male who presented the office with complaints of a soft tissue mass of his back and left flank. The lesions were becoming increasingly symptomatic for the patient and he desired excision. Risks, benefits and alternatives of surgery were discussed with the patient and decision was made to proceed. Informed consent was obtained. Description of procedure: The patient was brought to the operative suite and placed in the right lateral decubitus position. Anesthesia was induced. A timeout was performed verifying the correct patient, procedure, site and positioning. The area was prepped and draped in a sterile fashion with Betadine solution. The left flank lesion was addressed first. Half percent Marcaine with epinephrine was used as local anesthetic. A transverse incision was made overlying the lesion. Skin and subcutaneous tissues were divided. The lesion was circumferentially dissected and excised in its entirety. It appeared to be most consistent with a lipoma, and measured 3.5 cm, lay within the subcutaneous plane and was sent to pathology for further evaluation. The back lesion was then addressed. The patient had a prior scar from previous excision, and thus an elliptical incision was made to include the previous scar. Skin and subcutaneous tissues were divided. The lesion was circumferentially dissected, the lesion extended to the superficial muscular fascia. It was excised in its entirety, measured 4 cm, and was sent to pathology for further evaluation. It was also consistent with a lipoma. The wounds were thoroughly irrigated and hemostasis was ensured. The wounds were then closed in layers with 3-0 Vicryl for the deep dermal layers and 4-0 Monocryl for the skin. Sterile Steri-Strips and dressing were then applied. Patient was then awoken from anesthesia and taken to PACU in stable condition. All counts were correct. Normal [facility] Surgical Pathologyon 0[address] Surgical Pathology [id number] [place] [address] [facility] PATHOLOGY AND LABORATORY MEDICINE [address] [place] [address] Fax - FINAL SURGICAL PATHOLOGY REPORT NAME: YOVANNY SOLIMAN : 1980 40 Y Kosta ROSAS NO.: [id number] LOCATION: [place] [address] PROCEDURE 10/15/2021 DATE: SURGEON: LISBETH KEENAN M.D. RECEIVED 10/15/2021 DATE: ATTENDING: LISBETH KEENAN MD REPORT DATE: 10/16/2021 COPIES TO: DIAGNOSIS: A. SOFT TISSUE MASS, LEFT FLANK, EXCISION - LIPOMA B. SOFT TISSUE MASS, BACK, EXCISION - LIPOMA JAW/JAW Signature> JONATHAN GREGG M.D. CLINICAL INFORMATION: Soft tissue mass SPECIMEN: (A) MASS - SMALL, EXCISION (B) MASS - SMALL, EXCISION GROSS DESCRIPTION: A. Received in formalin, labeled left flank , is a well-circumscribed, partially encapsulated yellow-melgoza tissue segment measuring 3.5 x 3 x 1.5 cm. Cut surfaces are bulging, fatty, and yellow-melgoza. No areas of hemorrhage or friability are identified. Random client service representative section is submitted in a single cassette. B. Received in formalin, labeled back , is a well-circumscribed, partially encapsulated yellow-melgoza tissue segment measuring 5 x 4.5 x 3 cm. There is an ellipse of skin present on one surface, measuring 4 x 1.5 cm. The skin surface is wrinkled pink-melgoza. No epithelial lesions are identified. Cut surfaces are bulging, fatty, and yellow-melgoza. No areas of hemorrhage or friability are identified. Sections are submitted in two cassettes. JCK/0RW Disclaimer: The following statement applies to all immunohistochemistry, in situ hybridization, molecular studies, and immunofluorescence testing. The use of one or more reagents in the above tests is regulated as an analyte specific reagent (ASR). These tests were developed and their performance characteristics determined by the clinical laboratories of [facility]. They have not been cleared by the US Food and Drug Administration (FDA). The FDA has determined that such clearance or approval is not necessary. All the above immunostains were performed on paraffin embedded tissue. Appropriate positive and negative controls (where applicable) were run in parallel with the patient's specimen; these controls showed expected staining pattern, with acceptable intensity of staining. Immunohistochemical assays have not been validated on decalcified tissues. Results should be interpreted with caution given the raised possibility of false negativity on decalcified specimens. Case reviewed at [address] [address]. DEPARTMENT OF PATHOLOGY AND LABORATORY MEDICINE [place], [place] [address] [email or web address] Normal [facility] US ABDOMEN COMPLETEon 2020 Patient Name: YOVANNY SOLIMAN Ultrasound ACCESSION EXAM DATE/TIME PROCEDURE ORDERING PROVIDER [id number] 04/16/2020 13:45 EST US Abdomen Complete DO JOHNSON JOHN CHRISTIAN CPT code 32080 Reason For Exam (US Abdomen Complete) R10.11 Abdomen Pain Report Indication: Abdominal and right groin pain. Five cholecystectomy. Ultrasound of the abdomen was performed. The liver is normal in echotexture. There are no focal intrahepatic masses. The gallbladder as been surgically removed. There is no intra or extrahepatic biliary ductal dilatation. The common bile duct measures 2 mm. The pancreas is nonvisualized due to overlying bowel gas. Cursory evaluation of the kidneys shows no evidence of hydronephrosis. The spleen is not enlarged. The proximal portions of the aorta and IVC are within normal limits. Sonographic images of the right groin region in the area of patient pain reveal no gross abnormality. Impression: 1. Nonvisualization of the pancreas due to overlying bowel gas. Cholecystectomy. Otherwise, unremarkable abdominal ultrasound. Report Dictated on --- Final --- Dictating Physician: DO MEJIA ANTHONY Signed Date and Time: 04/16/2020 1:55 pm Signed by: DO MEJIA ANTHONY Transcribed Date and Time: 04/16/2020 1:56 [facility] Work Phone: [employer] Incoming Radiology Results From [facility] - 04/16/2020 1:56 PM EST Patient Name: YOVANNY SOLIMAN Ultrasound ACCESSION EXAM DATE/TIME PROCEDURE ORDERING PROVIDER [id number] 04/16/2020 13:45 EST US Abdomen Complete DO JOHNSON JOHN CHRISTIAN CPT code 83855 Reason For Exam (US Abdomen Complete) R10.11 Abdomen Pain Report Indication: Abdominal and right groin pain. Five cholecystectomy. Ultrasound of the abdomen was performed. The liver is normal in echotexture. There are no focal intrahepatic masses. The gallbladder as been surgically removed. There is no intra or extrahepatic biliary ductal dilatation. The common bile duct measures 2 mm. The pancreas is nonvisualized due to overlying bowel gas. Cursory evaluation of the kidneys shows no evidence of hydronephrosis. The spleen is not enlarged. The proximal portions of the aorta and IVC are within normal limits. Sonographic images of the right groin region in the area of patient pain reveal no gross abnormality. Impression: 1. Nonvisualization of the pancreas due to overlying bowel gas. Cholecystectomy. Otherwise, unremarkable abdominal ultrasound. Report Dictated on --- Final --- Dictating Physician: DO MEJIA ANTHONY Signed Date and Time: 04/16/2020 1:55 pm Signed by: DO MEJIA ANTHONY Transcribed Date and Time: 04/16/2020 1:56 [facility] Work Phone: Fentanyl AND Metab, Ur Qnton 2017 Fentanyl, Urn, Quant < 1.0 Normal [facility] Comment on above: Result Comment: INTE RPRETIVE INFORMATION: Fentanyl and Metabolite, Urine Methodology: Quantitative Liquid Chromatography-Tandem Mass Spectrometry Positive cutoff: 1.0 ng/mL For medical purposes only; not valid for forensic use. The absence of expected drug(s) and/or drug metabolite(s) may indicate non-compliance, inappropriate timing of specimen collection relative to drug administration, poor drug absorption, diluted/adulterated urine, or limitations of testing. The concentration value must be greater than or equal to the cutoff to be reported as positive. Interpretive questions should be directed to the laboratory. Test developed and characteristics determined by [employer]. See Compliance Statement B: [employer]/CS Performed By: #### I GN #### [address] [address] #### FENTO, FNTQO #### The performing lab is in the report. Norfentanyl, Urn, Quant < 1.0 Normal [facility] Comment on above: Result Comment: Perf ormed by [employer], [address] [place] [address] [email or web address], Saul Sanon MD - Lab. Director Performed By: #### I GN #### [address] [address] #### FENTO, FNTQO #### The performing lab is in the report. Fentanyl,Ur Screen w/Reflexo n 11-05-2017 Fentanyl, Urn, Screen Positive Normal Cutoff 2 [facility] Comment on above: Result Comment: If t he screen is positive, then confirmation testing by mass spectrometry will be added. Additional charges will apply. INTERPRETIVE INFORMATION: The absence of expected drug(s) and/or drug metabolite(s) may indicate non-compliance, inappropriate timing of specimen collection relative to drug administration, poor drug absorption, diluted/adulterated urine, or limitations of testing. The concentration at which the screening test can detect a drug or metabolite varies. Specimens for which drugs or drug classes are detected by the screen are reflexed to a second, more specific technology (GC/MS and/or LC-MS/MS). The concentration value must be greater than or equal to the cutoff to be reported as positive. Interpretive questions should be directed to the laboratory. For medical purposes only; not valid for forensic use. Test developed and characteristics determined by [employer]. See Compliance Statement B: [employer]/CS Performed By: #### I GN #### [place] [address] [address] [place], [place] #### FENTO, FNTQO #### The performing lab is in the report. [place] [facility] Screenon 2017 Amphetamines Ql (U) Positive Normal [facility] Comment on above: Performed By: #### I GN #### [place] [address] [address] [place], [place] #### FENTO, FNTQO #### The performing lab is in the report. Barbiturates Negative Normal [facility] Comment on above: Performed By: #### I GN #### [place] [address] [address] [place], [place] #### FENTO, FNTQO #### The performing lab is in the report. Benzodiazepines Ql (U) Negative Normal [facility] Comment on above: Performed By: #### I GN #### [place] [address] [address] [place], [place] #### FENTO, FNTQO #### The performing lab is in the report. Cocaine Metabolites Negative Normal [facility] Comment on above: Performed By: #### I GN #### [facility] [address] [place], [place] #### FENTO, FNTQO #### The performing lab is in the report. Comment [facility] Comment on above: Result Comment: The following drugs or drug groups have been screened for by Immunoassay at the thresholds listed: Amphetamine class(1000 ng/mL), Barbiturates(300 ng/mL), Benzodiazepines(200 ng/mL),Cocaine(300 ng/mL), Ethanol(50 ng/dL),Opiates(300 ng/mL),Oxycodone(100 ng/mL), and THC(50 ng/mL) A more specific alternative method must be used to confirm preliminary positive results. NOTE: These results are for medical treatment only. Analysis performed using non-forensic procedures. Performed By: #### I GN #### [place] [address] [address] [place], [place] #### FENTO, FNTQO #### The performing lab is in the report. Ethanol mass conc Negative [facility] Comment on above: Performed By: #### I GN #### [facility] [address] [place], [place] #### FENTO, FNTQO #### The performing lab is in the report. Opiates Ql (U) Negative [facility] Comment on above: Performed By: #### I GN #### [place] [address] [address] [place], [place] #### FENTO, FNTQO #### The performing lab is in the report. Oxycodone Negative [facility] Comment on above: Performed By: #### I GN #### [place] [address] [address] [place], [place] #### FENTO, FNTQO #### The performing lab is in the report. THC Negative [facility] Comment on above: Performed By: #### I GN #### [place] [address] [address] [place], [place] #### FENTO, FNTQO #### The performing lab is in the report. [place] [facility] 2017 Amphetamines Ql (U) Positive [facility] Comment on above: Performed By: #### I GN #### [facility] [address] [facility] [place] [facility] Barbiturates Negative Normal [facility] Comment on above: Performed By: #### I GN #### [facility] [address] [facility] [place] Benzodiazepines Ql (U) Negative [facility] Comment on above: Performed By: #### I GN #### [facility] [address] [facility] [place] Cocaine Metabolites Negative [facility] Comment on above: Performed By: #### I GN #### [facility] [address] [facility] [place] Comment [facility] Comment on above: Result Comment: The following drugs or drug groups have been screened for by Immunoassay at the thresholds listed: Amphetamine class(1000 ng/mL), Barbiturates(300 ng/mL), Benzodiazepines(200 ng/mL),Cocaine(300 ng/mL), Ethanol(50 ng/dL),Opiates(300 ng/mL),Oxycodone(100 ng/mL), and THC(50 ng/mL) A more specific alternative method must be used to confirm preliminary positive results. NOTE: These results are for medical treatment only. Analysis performed using non-forensic procedures. Performed By: #### I GN #### [facility] [address] [facility] [place] Ethanol mass conc Negative Normal [facility] Comment on above: Performed By: #### I GN #### [facility] [address] [facility] [place] Opiates Ql (U) Negative [facility] Comment on above: Performed By: #### I GN #### [facility] [address] [facility] [place] Oxycodone Negative [facility] Comment on above: Performed By: #### I GN #### [facility] [address] [facility] [place] THC Negative [facility] Comment on above: Performed By: #### I GN #### [facility] [address] [place], [place] [facility] 2017 Amphetamines Ql (U) Positive [facility] Comment on above: Performed By: #### I GN #### [facility] [address] [place], [place] Barbiturates Negative [facility] Comment on above: Performed By: #### I GN #### [facility] [address] [facility] [place] Benzodiazepines Ql (U) Negative [facility] Comment on above: Performed By: #### I GN #### [facility] [address] [place], [place] Cocaine Metabolites Negative [facility] Comment on above: Performed By: #### I GN #### [facility] [address] [facility] [place] Comment [facility] Comment on above: Result Comment: The following drugs or drug groups have been screened for by Immunoassay at the thresholds listed: Amphetamine class(1000 ng/mL), Barbiturates(300 ng/mL), Benzodiazepines(200 ng/mL),Cocaine(300 ng/mL), Ethanol(50 ng/dL),Opiates(300 ng/mL),Oxycodone(100 ng/mL), and THC(50 ng/mL) A more specific alternative method must be used to confirm preliminary positive results. NOTE: These results are for medical treatment only. Analysis performed using non-forensic procedures. Performed By: #### I GN #### [facility] [address] [facility] [place] Ethanol mass conc Negative [facility] Comment on above: Performed By: #### I GN #### [facility] [address] [facility] [place] Opiates Ql (U) Negative [facility] Comment on above: Performed By: #### I GN #### [facility] [address] [facility] [place] Oxycodone Negative [facility] Comment on above: Performed By: #### I GN #### [facility] [address] [facility] [place] THC Negative [facility] Comment on above: Performed By: #### I GN #### [facility] [address] [place], [place] [facility] 2017 Amphetamines Ql (U) Positive [facility] Comment on above: Performed By: #### I GN #### [facility] [address] [facility] [place] Barbiturates Negative [facility] Comment on above: Performed By: #### I GN #### [place] [address] [address] [facility] [place] Benzodiazepines Ql (U) Negative [facility] Comment on above: Performed By: #### I GN #### [facility] [address] [facility] [place] Cocaine Metabolites Negative [facility] Comment on above: Performed By: #### I GN #### [facility] [address] [facility] [place] Comment [facility] Comment on above: Result Comment: The following drugs or drug groups have been screened for by Immunoassay at the thresholds listed: Amphetamine class(1000 ng/mL), Barbiturates(300 ng/mL), Benzodiazepines(200 ng/mL),Cocaine(300 ng/mL), Ethanol(50 ng/dL),Opiates(300 ng/mL),Oxycodone(100 ng/mL), and THC(50 ng/mL) A more specific alternative method must be used to confirm preliminary positive results. NOTE: These results are for medical treatment only. Analysis performed using non-forensic procedures. Performed By: #### I GN #### [facility] [address], [place] Ethanol mass conc Negative Normal [facility] Comment on above: Performed By: #### I GN #### [facility] [address] [place] [address] Opiates Ql (U) Negative [facility] Comment on above: Performed By: #### I GN #### [facility] [address] [place] [address] Oxycodone Negative [facility] Comment on above: Performed By: #### I GN #### [facility] [address] THC Negative [facility] Comment on above: Performed By: #### I GN #### [facility] [address] [facility] Screen[place] 2017 Amphetamines Ql (U) Positive [facility] Comment on above: Performed By: #### I GN #### [place] [address] [address], [place] Barbiturates Negative [facility] Comment on above: Performed By: #### I GN #### [facility] [address] Benzodiazepines Ql (U) Negative [facility] Comment on above: Performed By: #### I GN #### [place] [address] [address] Cocaine Metabolites Negative [facility] Comment on above: Performed By: #### I GN #### [place] [address] [address] Comment [facility] Comment on above: Result Comment: The following drugs or drug groups have been screened for by Immunoassay at the thresholds listed: Amphetamine class(1000 ng/mL), Barbiturates(300 ng/mL), Benzodiazepines(200 ng/mL),Cocaine(300 ng/mL), Ethanol(50 ng/dL),Opiates(300 ng/mL),Oxycodone(100 ng/mL), and THC(50 ng/mL) A more specific alternative method must be used to confirm preliminary positive results. NOTE: These results are for medical treatment only. Analysis performed using non-forensic procedures. Performed By: #### I GN #### [facility] [address] Ethanol mass conc Negative Normal [facility] Comment on above: Performed By: #### I GN #### [facility] [address] Opiates Ql (U) Negative Normal [facility] Comment on above: Performed By: #### I GN #### [facility] [address] Oxycodone Negative Normal [facility] Comment on above: Performed By: #### I GN #### [facility] [address] THC Negative [facility] Comment on above: Performed By: #### I GN #### [facility] [address] Screen[place] 2017 Amphetamines Ql (U) Positive [facility] Comment on above: Performed By: #### I GN #### [facility] [address] Barbiturates Negative [facility] Comment on above: Performed By: #### I GN #### [facility] [address] Benzodiazepines Ql (U) Negative [facility] Comment on above: Performed By: #### I GN #### [facility] [address] Cocaine Metabolites Negative [facility] Comment on above: Performed By: #### I GN #### [facility] [address] Comment Normal [facility] Comment on above: Result Comment: The following drugs or drug groups have been screened for by Immunoassay at the thresholds listed: Amphetamine class(1000 ng/mL), Barbiturates(300 ng/mL), Benzodiazepines(200 ng/mL),Cocaine(300 ng/mL), Ethanol(50 ng/dL),Opiates(300 ng/mL),Oxycodone(100 ng/mL), and THC(50 ng/mL) A more specific alternative method must be used to confirm preliminary positive results. NOTE: These results are for medical treatment only. Analysis performed using non-forensic procedures. Performed By: #### I GN #### [facility] [address], [place] Ethanol mass conc Negative [facility] Comment on above: Performed By: #### I GN #### [facility] [address], [place] Opiates Ql (U) Negative [facility] Comment on above: Performed By: #### I GN #### [facility] [address], [place] Oxycodone Negative [facility] Comment on above: Performed By: #### I GN #### [facility] [address], [place] THC Negative [facility] Comment on above: Performed By: #### I GN #### [facility] [address] 2017 Amphetamines Ql (U) Positive [facility] Comment on above: Performed By: #### I GN #### [facility] [address] Barbiturates Negative [facility] Comment on above: Performed By: #### I GN #### [facility] [address] Benzodiazepines Ql (U) Negative [facility] Comment on above: Performed By: #### I GN #### [facility] [address] Cocaine Metabolites Negative [facility] Comment on above: Performed By: #### I GN #### [place] [address] [address], [place] Comment [facility] Comment on above: Result Comment: The following drugs or drug groups have been screened for by Immunoassay at the thresholds listed: Amphetamine class(1000 ng/mL), Barbiturates(300 ng/mL), Benzodiazepines(200 ng/mL),Cocaine(300 ng/mL), Ethanol(50 ng/dL),Opiates(300 ng/mL),Oxycodone(100 ng/mL), and THC(50 ng/mL) A more specific alternative method must be used to confirm preliminary positive results. NOTE: These results are for medical treatment only. Analysis performed using non-forensic procedures. Performed By: #### I GN #### [facility] [address], [place] Ethanol mass conc Negative Normal [facility] Comment on above: Performed By: #### I GN #### [facility] [address], [place] Opiates Ql (U) Negative Normal [facility] Comment on above: Performed By: #### I GN #### [facility] [address], [place] Oxycodone Negative [facility] Comment on above: Performed By: #### I GN #### [facility] [address], [place] THC Negative Normal [facility] Comment on above: Performed By: #### I GN #### [facility] [address], [place] Vital Signs Date Time Vital Sign Value Performing Clinician Jatin brown 10-25-2023 15:41-0400 Body height 175.3 cm Sharda Nieves APRN.PILE HEADER Work Phone: [facility] 10-25-2023 15:41-0400 Body mass index (BMI) [Ratio] 27.32 kg/m2 Shardateresita Levinir WATER MANAGER.PILE HEADER Work Phone: [facility] 10-25-2023 15:41-0400 Body temperature 98.2 [degF] Sharda Levinir WATER MANAGER.PILE HEADER Work Phone: [facility] 10-25-2023 15:41-0400 Body weight 83.92 kg Sharda Nieves WATER MANAGER.PILE HEADER Work Phone: [facility] 10-25-2023 15:41-0400 Diastolic blood pressure 86 mm[Hg] Sharda Wily WATER MANAGER.PILE HEADER Work Phone: [facility] 10-25-2023 15:41-0400 Heart rate 96 /min Sharda Wily WATER MANAGER.PILE HEADER Work Phone: [facility] 10-25-2023 15:41-0400 Respiratory rate 14 /min Sharda Wily WATER MANAGER.PILE HEADER Work Phone: [facility] 10-25-2023 15:41-0400 SaO2% (BldA) [Mass fraction] 94 % Sharda Wily WATER MANAGER.PILE HEADER Work Phone: [facility] 10-25-2023 15:41-0400 Systolic blood pressure 130 mm[Hg] Sharda Wily WATER MANAGER.PILE HEADER Work Phone: [facility] 10-15-2021 09:15-0400 Diastolic blood pressure 81 mm[Hg] Lisbeth Keenan MD Work Phone: [facility] 10-15-2021 09:15-0400 Heart rate 79 /min Lisbeth Keenan MD Work Phone: [facility] 10-15-2021 09:15-0400 Respiratory rate 18 /min Lisbeth Keenan MD Work Phone: [facility] 10-15-2021 09:15-0400 SaO2% (BldA) [Mass fraction] 98 % Lisbeth Keenan MD Work Phone: [facility] 10-15-2021 09:15-0400 Systolic blood pressure 116 mm[Hg] Lisbeth Keenan MD Work Phone: [facility] 10-15-2021 08:28-0400 Body temperature 97.5 [degF] Lisbeth Keenan MD Work Phone: [facility] 10-15-2021 06:36-0400 Body height 175.3 cm Lisbeth Keenan MD Work Phone: [facility] 10-15-2021 06:36-0400 Body mass index (BMI) [Ratio] 25.84 kg/m2 Lisbeth Keenan MD Work Phone: [facility] 10-15-2021 06:36-0400 Body weight 79.38 kg Lisbeth Keenan MD Work Phone: [facility] Encounters Encounter Date Encounter Type Care Provider Facility Start: 10-26-2023 End: 11-04-2023 Telephone encounter Sharda Nieves MADELIN.PILE HEADER Work Phone: General Surgery Comment on above: Patient Update Start: 10-25-2023 End: 10-25-2023 ambulatory [facility] Facility:[facility] Start: 10-25-2023 End: 10-25-2023 Patient encounter procedure Sharda Nieves WATER MANAGER.PILE HEADER Work Phone: General Surgery Comment on above: Encounter for screen ing for malignant neoplasm of colon (Primary Dx) Start: 06-29-2023 End: 06-29-2023 ambulatory [facility] Start: 06-21-2023 End: 06-21-2023 ambulatory [facility] Start: 06-10-2023 End: 06-10-2023 ambulatory [facility] Start: 06-08-2023 End: 06-08-2023 ambulatory [facility] Start: 06-02-2023 End: 06-02-2023 ambulatory [facility] Start: 05-20-2023 End: 05-20-2023 ambulatory [facility] Start: 04-28-2023 End: 04-30-2023 Evaluation and management of inpatient [place] Facility:[facility] Start: 12-09-2022 End: 12-09-2022 Emergency department patient visit [facility] Facility:[facility] Start: 10-15-2021 End: 10-15-2021 Subsequent hospital visit by physician Lisbeth Keenan MD Work Phone: [facility] General Surgery Comment on above: Soft tissue mass (Pr imary Dx) Start: 04-16-2020 End: 04-16-2020 Subsequent hospital visit by physician Yonas Johnson Work Phone: [facility] Ultrasound Comment on above: Arrived Start: 02-09-2018 Emergency department patient visit [facility] Start: 12-22-2017 Patient encounter procedure Estiven Cobb [facility] Start: 08-19-2017 Emergency department patient visit [facility] Start: 08-18-2017 Emergency department patient visit [facility] Procedures Date Procedure Procedure Detail Performing Clinician Start: 10-15-2021 OPERATIVE REPORT Physic joey Generic Start: 04-16-2020 Us abdominal real ti me w/image documentation Yonas Johnson Work Phone: Plan of Treatment Date Care Activity Detail Author Start: 02-10-2028 DTaP/Tdap/Td vaccine (2 - Td or Tdap) DTaP/Tdap/Td vaccine (2 - Td or Tdap) [facility] Start: 02-10-2028 DTaP/Tdap/Td vaccine (2 - Td) DTaP/Tdap/Td vaccine (2 - Td) [facility] Work Phone: Start: 02-10-2028 Urine microalbumin profile DTaP,Tdap,Td Vaccine (2 - Td or Tdap) [facility] Start: 12-23-2023 End: 12-23-2023 Patient encounter procedure 12/23/2023 11:00 AM EST Appointment LD SURGERY [address] [place] [address] Judith Colvin MD [facility] [place] [id number] LD SURGERY Start: 10-10-2023 Covid-19 Vaccine ( season) Covid-19 Vaccine ( season) [facility] Start: 10-10-2023 Covid-19 Vaccine ( season) Covid-19 Vaccine ( season) [facility] Start: 10-10-2023 Influenza vaccination Influenza Vacc ine (#1) [facility] Start: 10-09-2021 Influenza vaccination Flu vaccine (# 1) [facility] Start: 10-10-2019 Influenza vaccination Flu vaccine (# 1) [facility] Work Phone: Start: 11-16-2018 Hepatitis B Vaccine (3 of 3 - Hep B Twinrix 3-dose series) Hepatitis B Vaccine (3 of 3 - Hep B Twinrix 3-dose series) [facility] Start: 2018 Lipid panel Lipid screen [facility] Work Phone: Start: 2013 Diabetes screen Diabetes screen [facility] Start: 2013 Lipid panel Lipid Screening [facility] Start: 1996 Anxiety Screening Anxiety Screening [facility] Start: 1996 Depression Screening Depression Scre ening [facility] Start: 1996 Hepatitis C screening [facility] Start: 1996 HIV screening HIV Screening [facility] Start: 1993 HIV screening HIV screen [facility] Start: 1990 Depression Screen Depression Screen [facility] Start: 1988 Lipid panel Lipids [facility] Start: 1984 Pneumococcal 0-64 ye ars Vaccine (1 - PCV) Pneumococcal 0-64 years Vaccine (1 - PCV) [facility] Start: 1984 Pneumococcal 0-64 ye ars Vaccine (1 of 1 - PPSV23) Pneumococcal 0-64 years Vaccine (1 of 1 - PPSV23) [facility] Work Phone: Start: 05-07-1979 COVID-19 Vaccine (#1) COVID-19 Vacci ne (#1) [facility] Start: 1978 Hepatitis C screening Hepatitis C sc reen [facility] Work Phone: End: 04-16-2020 Cardiac event monitor Cardiac event monitor Cardiac Services Routine One Time for 1 Occurrences starting 04/16/2020 until 04/16/2020 [facility] Work Phone: Comment on above: One Time for 1 Occur rences starting 04/16/2020 until 04/16/2020 End: 10-15-2021 INITIATE PACU OXYGEN THERAPY PROTOCOL Initiate PACU Oxygen Therapy Protocol Respiratory Care Routine Continuous until discontinued starting 10/15/2021 [facility] Work Phone: Comment on above: Continuous until dis continued starting 10/15/2021 End: 10-15-2021 Intermittent pulse oximetry Pulse Oximetry Spot Check Respiratory Care Routine One Time for 1 Occurrences starting 10/15/2021 until 10/15/2021 [facility] Work Phone: Comment on above: One Time for 1 Occur rences starting 10/15/2021 until 10/15/2021 Nasal Cannula Oxygen Nasal Cannu la Oxygen Respiratory Care Routine As Needed until discontinued starting 10/15/2021 [facility] Work Phone: Comment on above: As Needed until disc ontinued starting 10/15/2021 Nasal Cannula Oxygen Nasal Cannu la Oxygen Respiratory Care Routine As Needed until discontinued starting 10/15/2021 [facility] Work Phone: Comment on above: As Needed until disc ontinued starting 10/15/2021 Nonrebreather mask oxygen Nonrebreather mask oxygen Respiratory Care Routine As Needed until discontinued starting 10/15/2021 [facility] Work Phone: Comment on above: As Needed until disc ontinued starting 10/15/2021 Nonrebreather mask oxygen Nonrebreather mask oxygen Respiratory Care Routine As Needed until discontinued starting 10/15/2021 [facility] Work Phone: Comment on above: As Needed until disc ontinued starting 10/15/2021 Oxygen therapy [[facility] Data Set] Initiate Oxygen Therapy Protocol Respiratory Care Routine Daily until discontinued starting 10/15/2021 [facility] Work Phone: Comment on above: Daily until disconti nued starting 10/15/2021 End: 10-24-2024 Screening colonoscopy COLONOSCOPY SCREENING Endoscopy Routine Encounter for screening for malignant neoplasm of colon 1 Occurrences starting 10/26/2023 until 10/24/[address] [facility] Work Phone: Comment on above: 1 Occurrences starti ng 10/26/2023 until 10/24/2024 Spirometry panel Incentive [facility] Respiratory Care Routine Q1H PRN until discontinued starting 10/15/2021 [facility] Work Phone: Comment on above: Q1H PRN until discon tinued starting 10/15/2021 End: 10-15-2021 Surgical Pathology [facility] Work Phone: Comment on above: Once for 1 Occurrenc es starting 10/15/2021 until 10/15/2021 Immunizations Immunization Date Immunization Notes Care Provider Fa cility 02-09-2018 tetanus toxoid, redu leola diphtheria toxoid, and acellular pertussis vaccine, adsorbed Yonas Johnson [facility] 01-01-2009 influenza virus vacc ine, unspecified formulation Sharda Nieves APRN.PILE HEADER Work Phone: [facility] Payers Date Payer Category Payer Medicaid [employer] [id number] 2022-Present [phone] [address] [place] [address] Medicaid [id number] 2021 Unknown HEALTH PLAN OF [facility] THE HE[facility] PLAN [facility] [id number] 2021-Present [phone] [place] [address] [id number] 2014 Unknown [id number] 1978 Unknown [id number] 1978 Unknown [id number] 1978 Unknown [id number] Unknown Social History Date Type Detail Facility Start: 02-09-2018 End: 10-15-2021 Tobacco smoking status SCIS Current [facility] History of tobacco use Cigarette Smoker [facility] [employer] Work Phone: Start: 02-09-2018 End: 10-25-2023 Cigarettes smoked current (pack per day) - Reported [employer] Work Phone: Start: 02-09-2018 End: 10-25-2023 Tobacco use and exposure Never used [employer] Work Phone: Start: 02-09-2018 End: 10-15-2021 Alcohol intake Current non-drinker of alcohol (finding) [facility] Work Phone: Start: 1980 Sex Assigned At Not on file [facility] Work Phone: Start: 10-05-2021 End: 10-15-2021 Exposure to SARS-CoV-2 (event) Not sure [facility] Work Phone: Start: 10-25-2023 [facility] History of tobacco use Current smoker [facility] Start: 10-25-2023 Alcoholic beverage intake Ex-drinker (finding) [facility] Start: 10-25-2023 Tobacco use panel [facility] National Score (1-10 0), lower number is lower risk 52 [facility] Clinical Notes 10-15-2021 to 10-26-2023 Telephone Encounter - Kyra Aguilera RN - 10/26/2023 9:22 AM EDTTelephone Encounter - Kyra Aguilera RN - 10/26/2023 9:22 AM EDTCYolande castellon LPN - 10/25/2023 4:26 PM EDT Note Date & Type Note Facility 10-26-2023 Telephone encounter Note Records release faxed to [phone], [facility]. Confirmation sheet received. Kyra Aguilera RN October 26, 2023 9:22 AM [facility] 10-26-2023 Miscellaneous Notes Records release faxed to [phone], [facility]. Confirmation sheet received. Kyra Aguilera RN October 26, 2023 9:22 AM Can we please get recent EGD/colonoscopy from [facility] in [place]? I have placed the medical release form at the nurses station. Thanks Sharda Nieves APRN.PILE HEADER documented in this encounter [facility] 10-26-2023 Telephone encounter Note Can we please get recent EGD/colonoscopy from [facility] in [place]? I have placed the medical release form at the nurses station. Thanks Sharda Nieves APRN.PILE HEADER [facility] 10-25-2023 Nurse Note This Nurse reviewed and provided patient with copy of written instructions. The patient verbalized understanding and was given a number for questions. Yolande Burgos LPN [facility] 10-25-2023 Nurse Note This Nurse reviewed and provided patient with copy of written instructions. The patient verbalized understanding and was given a number for questions. Yolande Burgos LPN REVIEW OF SYSTEMS: General: The patient denies fatigue, denies weight loss, denies weight gain, denies feeling hot, and denies feelings of cold. Eyes: The patient denies glaucoma, denies eye injury/surgery, does not wear glasses or contacts. Ear/Nose/Throat: The patient notes allergies, notes hayfever, denies ear infections, and denies bloody noses. Cardiovascular: The patient denies chest pain, denies heart disease, denies high blood pressure,denies cardiac stent, denies prior heart attack, denies irregular heart beat, notes high cholesterol, denies poor circulation, denies heart failure, other cardiac issues, denies claudication, denies cold feet, denies peripheral arterial stent. Respiratory: The patient denies tuberculosis, denies pneumonia, denies frequent cough, denies pulmonary embolism, denies shortness of breath, and denies coughing up blood. Gastrointestinal: The patient denies difficulty swallowing, denies acid reflux, denies ulcers, denies vomiting, denies jaundice/hepatitis, denies gallbladder problems, denies black or tarry stools, denies hemorrhoids, denies bleeding from rectum, denies diverticulitis, denies constipation, denies diarrhea, denies loss of stool control, and notes hernias. Kidney/Bladder: The patient denies kidney stones, denies urine infections, and denies bloody urine. Skin: The patient denies a history of skin cancer, denies bleeding/changing moles, and denies a history of skin rash. Neurologic: The patient denies a history of epilepsy/convulsions, denies headaches, denies head/spinal injuries, and denies stroke/TIA. Psychiatric: The patient denies psychiatric medications, notes depression, and denies voices, notes history of substance abuse. Endocrine: The patient denies thyroid disorders, denies diabetes, and denies hormonal problems. Hematologic: The patient denies a history of bruising, denies bleeding, and denies anemia, denies blood clots. Infections: The patient denies a history of measles and mumps, denies rheumatic fever, and denies sexually transmitted diseases. Musculoskeletal: The patient denies back pain/injury, denies back problems, denies sciatica, denies knee/foot trouble, denies arthritis, or denies gout. When was patient's last Mammogram screening? N/A Last Colonoscopy: None Yolande Burgos LPN documented in this encounter [facility] 10-25-2023 Nurse Note REVIEW OF SYSTEMS: General: The patient denies fatigue, denies weight loss, denies weight gain, denies feeling hot, and denies feelings of cold. Eyes: The patient denies glaucoma, denies eye injury/surgery, does not wear glasses or contacts. Ear/Nose/Throat: The patient notes allergies, notes hayfever, denies ear infections, and denies bloody noses. Cardiovascular: The patient denies chest pain, denies heart disease, denies high blood pressure,denies cardiac stent, denies prior heart attack, denies irregular heart beat, notes high cholesterol, denies poor circulation, denies heart failure, other cardiac issues, denies claudication, denies cold feet, denies peripheral arterial stent. Respiratory: The patient denies tuberculosis, denies pneumonia, denies frequent cough, denies pulmonary embolism, denies shortness of breath, and denies coughing up blood. Gastrointestinal: The patient denies difficulty swallowing, denies acid reflux, denies ulcers, denies vomiting, denies jaundice/hepatitis, denies gallbladder problems, denies black or tarry stools, denies hemorrhoids, denies bleeding from rectum, denies diverticulitis, denies constipation, denies diarrhea, denies loss of stool control, and notes hernias. Kidney/Bladder: The patient denies kidney stones, denies urine infections, and denies bloody urine. Skin: The patient denies a history of skin cancer, denies bleeding/changing moles, and denies a history of skin rash. Neurologic: The patient denies a history of epilepsy/convulsions, denies headaches, denies head/spinal injuries, and denies stroke/TIA. Psychiatric: The patient denies psychiatric medications, notes depression, and denies voices, notes history of substance abuse. Endocrine: The patient denies thyroid disorders, denies diabetes, and denies hormonal problems. Hematologic: The patient denies a history of bruising, denies bleeding, and denies anemia, denies blood clots. Infections: The patient denies a history of measles and mumps, denies rheumatic fever, and denies sexually transmitted diseases. Musculoskeletal: The patient denies back pain/injury, denies back problems, denies sciatica, denies knee/foot trouble, denies arthritis, or denies gout. When was patient's last Mammogram screening? N/A Last Colonoscopy: None Yolande Burgos LPN [facility] 10-25-2023 History of Presen t illness Narrative HISTORY AND PHYSICAL Pablito Soliman : 1980 REFERRING PHYSICIAN: No referring provider defined for this encounter. CHIEF COMPLAINT: Patient presents with: Consult HPI: Pablito is a 42 year old male referred for endoscopy. Pablito notes due for screening colonoscopy. Pablito denies abdominal pain.. Pablito notes occasional diarrhea. +hx of cholecystectomy bowels are frequent and soft depending on what he eats, specifically greasy foods Pablito denies constipation. Pablito denies a change in bowel habits. Pablito denies melena. Pablito denies bright red blood per rectum. Pablito denies hemorrhoids. Pablito denies heartburn. Pablito denies dysphagia. Pablito denies a history of ulcers/ peptic ulcer disease. +hx of esophageal dilatation- denies any similar symptoms currently Denies family history of colon issues. Hx of IV drug abuse & meth use- pt was admitted to the hospital in April 2023 for sepsis and patient has been drug free since. Pablito has undergone prior endoscopy. Had an E[facility] with [facility]- we have requested these records. No colonoscopy Current Outpatient Medications Medication Sig tamsulosin (FLOMAX) 0.4 mg Take 1 capsule by mouth once daily. therapeutic multivitamin-minerals (THERA-M PLUS) 9 mg iron-400 mcg tablet Take 1 tablet by mouth once daily. No current facility-administered medications for this visit. ALLERGIES: Codeine PAST MEDICAL HISTORY Diagnosis Date ADHD Depression Drug abuse and dependence (HCC) Sober since April 2023 PAST SURGICAL HISTORY Procedure Laterality Date APPENDECTOMY Around 18 years old EXTRACTION ERUPTED TOOTH/EXR All four FOOT SURGERY HX FOOT SURGERY HX Right Two surgeries FOOT SURGERY HX Left One surgery HAND SURGERY HX Right REMOVAL GALLBLADDER REPAIR OF SHOULDER Left Three surgeries FAMILY HISTORY Problem Relation Age of Onset No Known Problems Mother No Known Problems Father No Known Problems Brother No Known Problems Maternal Grandmother No Known Problems Maternal Grandfather No Known Problems Paternal Grandmother No Known Problems Paternal Grandfather Social History Tobacco Use Smoking status: Former Types: Cigarettes Smokeless tobacco: Never Vaping Use Vaping status: current everyday user Substances: Nicotine, Flavoring Devices: Disposable Substance Use Topics Alcohol use: Not Currently Drug use: Not Currently Types: Marijuana, Crystal Meth, Cocaine, Heroin Comment: Sober for April 2023 REVIEW OF SYMPTOMS: The review of systems data was entered by the nurse and reviewed by pr Nursing Notes: Yolande Burgos LPN 10/25/2023 3:52 PM Signed REVIEW OF SYSTEMS: General: The patient denies fatigue, denies weight loss, denies weight gain, denies feeling hot, and denies feelings of cold. Eyes: The patient denies glaucoma, denies eye injury/surgery, does not wear glasses or contacts. Ear/Nose/Throat: The patient notes allergies, notes hayfever, denies ear infections, and denies bloody noses. Cardiovascular: The patient denies chest pain, denies heart disease, denies high blood pressure,denies cardiac stent, denies prior heart attack, denies irregular heart beat, notes high cholesterol, denies poor circulation, denies heart failure, other cardiac issues, denies claudication, denies cold feet, denies peripheral arterial stent. Respiratory: The patient denies tuberculosis, denies pneumonia, denies frequent cough, denies pulmonary embolism, denies shortness of breath, and denies coughing up blood. Gastrointestinal: The patient denies difficulty swallowing, denies acid reflux, denies ulcers, denies vomiting, denies jaundice/hepatitis, denies gallbladder problems, denies black or tarry stools, denies hemorrhoids, denies bleeding from rectum, denies diverticulitis, denies constipation, denies diarrhea, denies loss of stool control, and notes hernias. Kidney/Bladder: The patient denies kidney stones, denies urine infections, and denies bloody urine. Skin: The patient denies a history of skin cancer, denies bleeding/changing moles, and denies a history of skin rash. Neurologic: The patient denies a history of epilepsy/convulsions, denies headaches, denies head/spinal injuries, and denies stroke/TIA. Psychiatric: The patient denies psychiatric medications, notes depression, and denies voices, notes history of substance abuse. Endocrine: The patient denies thyroid disorders, denies diabetes, and denies hormonal problems. Hematologic: The patient denies a history of bruising, denies bleeding, and denies anemia, denies blood clots. Infections: The patient denies a history of measles and mumps, denies rheumatic fever, and denies sexually transmitted diseases. Musculoskeletal: The patient denies back pain/injury, denies back problems, denies sciatica, denies knee/foot trouble, denies arthritis, or denies gout. When was patient's last Mammogram screening? N/A Last Colonoscopy: None Yolande Aubrey, FLOWER STRIPPER Aubrey, Yolande, FLOWER STRIPPER 10/25/2023 4:26 PM Signed This Nurse reviewed and provided patient with copy of written instructions. The patient verbalized understanding and was given a number for questions. Yolande Burgos LAYA PHYSICAL EXAMINATION: General: The patient is 42 year old, male well nourished, well hydrated in no acute distress. The patient is oriented to time, place, and person. VITALS: Blood pressure 130/86, pulse 96, temperature 36.8 C (98.2 F), temperature source Temporal, resp. rate 14, height 175.3 cm (5' 9 ), weight 83.9 kg (185 lb), SpO2 94%. Body mass index is 27.32 kg/m . HEENT: Normal cephalic, ataumatic, pupils are equally round, sclera are anicteric, mucous membranes are moist, oropharynx is clear. Neck has no masses, asymmetry or lymphadenopathy. Respiratory: Clear to auscultation and percussion. Normal respiratory excursion and pattern. Cardiac: Examination is regular rate and rhythm. Normal S1/S2 Abdominal exam: Soft, nontender, with no palpable masses. No hepatosplenomegaly. No palpable hernias. Extremities: no clubbing, cyanosis or edema. No adenopathy. LABORATORY VALUES: As Noted RADIOLOGIC STUDIES: As Noted Assessment IMPRESSION: screen for colon cancer PLAN: I have reviewed my findings with the surgeon. Will plan for lower endoscopy. We discussed the risks and benefits of the planned endoscopy. I have informed the patient that complications can occur including failure to complete the endoscopy and perforation. Pablito had the opportunity to ask questions concerning the planned endoscopy. My staff has also explained the procedure to the patient in understandable terms and has given the patient printed material concerning the procedure. Pablito freely consents to surgery. I plan to use Golytely bowel preparation I have explained to the patient the difference between IV conscious sedation and MAC anesthesia - and I have offered either, according to the patient's wishes. I have explained that with IV conscious sedation there is no anesthesia provider available and therefore there is a limitation of the amount of IV medications that can be given and that the patient may wake up in the middle of the procedure and/or experience pain/discomfort during the procedure. Further discussion was done and the patient was given the opportunity to ask questions and all questions were answered. MAC anesthesia. Pablito was counseled that if there are changes in his/her medical condition, to let the office know if surgery should proceed. If there are changes in patient's medical condition from time of this encounter to the day of the procedure that preclude anesthesia, patient may have procedure cancelled for patient's safety. Diagnoses: (Z12.11) Encounter for screening for malignant neoplasm of colon (primary encounter diagnosis) Portions of this documentation were copied and pasted from previous office visit notes in order to provide a cohesive continuity of the history. The note has been reviewed and edited and updated as necessary. Sharda Nieves APRN.SIDRA documented in this encounter [facility] 10-25-2023 Note HNO ID: [id number] Author: SHARDA NIEVES APRN.CNP Service: ? Author Type: Nurse Practitioner Type: Progress Notes Filed: 10/26/2023 08:28 Note Text: HISTORY AND PHYSICAL Pablito Soliman : 1980 REFERRING PHYSICIAN: No referring provider defined for this encounter. CHIEF COMPLAINT: Patient presents with: Consult HPI: Pablito is a 42 year old male referred for endoscopy. Pablito notes due for screening colonoscopy. Pablito denies abdominal pain.. Pablito notes occasional diarrhea. +hx of cholecystectomy bowels are frequent and soft depending on what he eats, specifically greasy foods Pablito denies constipation. Pablito denies a change in bowel habits. Pablito denies melena. Pablito denies bright red blood per rectum. Pablito denies hemorrhoids. Pablito denies heartburn. Pablito denies dysphagia. Pablito denies a history of ulcers/ peptic ulcer disease. +hx of esophageal dilatation- denies any similar symptoms currently Denies family history of colon issues. Hx of IV drug abuse AND meth use- pt was admitted to the hospital in April 2023 for sepsis and patient has been drug free since. Pablito has undergone prior endoscopy. Had an EGD with dilatation completed [facility] in the past- we have requested these records. No colonoscopy Current Outpatient Medications Medication Sig tamsulosin (FLOMAX) 0.4 mg Take 1 capsule by mouth once daily. therapeutic multivitamin-minerals (THERA-M PLUS) 9 mg iron-400 mcg tablet Take 1 tablet by mouth once daily. No current facility-administered medications for this visit. ALLERGIES: Codeine PAST MEDICAL HISTORY Diagnosis Date ADHD Depression Drug abuse and dependence (HCC) Sober since April 2023 PAST SURGICAL HISTORY Procedure Laterality Date APPENDECTOMY Around 18 years old EXTRACTION ERUPTED TOOTH/EXR All four FOOT SURGERY HX FOOT SURGERY HX Right Two surgeries FOOT SURGERY HX Left One surgery HAND SURGERY HX Right REMOVAL GALLBLADDER REPAIR OF SHOULDER Left Three surgeries FAMILY HISTORY Problem Relation Age of Onset No Known Problems Mother No Known Problems Father No Known Problems Brother No Known Problems Maternal Grandmother No Known Problems Maternal Grandfather No Known Problems Paternal Grandmother No Known Problems Paternal Grandfather Social History Tobacco Use Smoking status: Former Types: Cigarettes Smokeless tobacco: Never Vaping Use Vaping status: current everyday user Substances: Nicotine, Flavoring Devices: Disposable Substance Use Topics Alcohol use: Not Currently Drug use: Not Currently Types: Marijuana, Crystal Meth, Cocaine, Heroin Comment: Sober for April 2023 REVIEW OF SYMPTOMS: The review of systems data was entered by the nurse and reviewed by pr Nursing Notes: Yolande Burgos LPN 10/25/2023 3:52 PM Signed REVIEW OF SYSTEMS: General: The patient denies fatigue, denies weight loss, denies weight gain, denies feeling hot, and denies feelings of cold. Eyes: The patient denies glaucoma, denies eye injury/surgery, does not wear glasses or contacts. Ear/Nose/Throat: The patient notes allergies, notes hayfever, denies ear infections, and denies bloody noses. Cardiovascular: The patient denies chest pain, denies heart disease, denies high blood pressure,denies cardiac stent, denies prior heart attack, denies irregular heart beat, notes high cholesterol, denies poor circulation, denies heart failure, other cardiac issues, denies claudication, denies cold feet, denies peripheral arterial stent. Respiratory: The patient denies tuberculosis, denies pneumonia, denies frequent cough, denies pulmonary embolism, denies shortness of breath, and denies coughing up blood. Gastrointestinal: The patient denies difficulty swallowing, denies acid reflux, denies ulcers, denies vomiting, denies jaundice/hepatitis, denies gallbladder problems, denies black or tarry stools, denies hemorrhoids, denies bleeding from rectum, denies diverticulitis, denies constipation, denies diarrhea, denies loss of stool control, and notes hernias. Kidney/Bladder: The patient denies kidney stones, denies urine infections, and denies bloody urine. Skin: The patient denies a history of skin cancer, denies bleeding/changing moles, and denies a history of skin rash. Neurologic: The patient denies a history of epilepsy/convulsions, denies headaches, denies head/spinal injuries, and denies stroke/TIA. Psychiatric: The patient denies psychiatric medications, notes depression, and denies voices, notes history of substance abuse. Endocrine: The patient denies thyroid disorders, denies diabetes, and denies hormonal problems. Hematologic: The patient denies a history of bruising, denies bleeding, and denies anemia, denies blood clots. Infections: The patient denies a history of measles and mumps, denies rheumatic fever, and denies sexually transmitted diseases. Muscul (more content not included)... [facility] 06-29-2023 Note Outpatient [facility] Transfer/Discharge Summary Patient Instructions Program: Addiction Medicine Intensive Outpatient Program Current Service/Group: Addiction IOP Discharge Type: Did Not Complete Goals - left AMA or lost contact Date of Last SessionAttended: 06/10/2023 Number of Sessions attended: 1 Treatment Outcome Measures: PHQ-9 PHQ-9 pre-score: 6 PHQ-9 post-score: Patient did not complete the measurement tool YAS-7 YAS-7 pre-score: 13 YAS-7 post-score: Patient did not complete the measurement tool Updated ASAM Criteria: ASAM CRITERIA/SEVERITY ANALYSIS 0 - Non-issue/low risk 1 - Mild difficulty in functioning 2 - Moderate difficulty in functioning 3 - Serious issue or difficulty coping/in or near ?imminent danger? 4 - Severe - indicating an ?imminent danger? concern SUMMARY/JUSTIFICATION FOR LEVEL OF CARE 1 Dimension 1: Acute Intoxication and/or Withdrawal Potential Comments: Pt displays an adequate ability to manage withdrawal discomfort and reports continues sobriety (as of 06/02/23) 0 Dimension 2: Biomedical Conditions and Complications Comments: Pt does not display biomedical signs or sxs at present and are otherwise stable. 2 Dimension 3: Emotional, Behavioral, or Cognitive Conditions and Complications Comments: : Pt screeners and report indicative of presence of clinicially significant emotional, behavioral, and cognitive issues that may distract from his recovery. 2 Dimension 4: Readiness to Change Comments:Pt agrees to treatment and has self-referred to program following inpatient/residential treament. Pt has pending legal issues that serve as motivators to change. 3 Dimension 5: Relapse, Continued Use, or Continued Problem Potential Comments: Pt displays poor coping skills to help manage addiction issues which has hampered his ability to maintain sobriety in the past. Pt report somewhat impuslive behavior and past influece from external influences which have contributed to continued use and relapse. 0 Dimension 6: Recovery/Living Environment Comments:t reports that he has reengaged with sober supports including his family, a sober/supportive partner, mark community, and use of 12 step meetings. Comments: Pt ASAM scores and rationale are as of last psychiatric evaluation (06/02/23) Patient At Home Medication: Prior to Admission medications Medication Sig Start Date End Date Taking? Authorizing Provider simvastatin (Zocor) 40 MG tablet Take 40 mg by mouth Nightly. 05/10/23 Historical Provider, tamsulosin (Flomax) 0.4 MG 24 hr capsule Take 0.4 mg by mouth in the morning. 04/30/23 Historical Provider, Complete the following for DISCHARGE from [facility] Addiction IOP Program: Summary of Treatment Provided and Progress Towards Goal(s): Pt unable to complete goals or engage in [place] external factors (work schedule, access to transportation, etc) which impacted his attendance. Pt engaged in 1 session of PM IOP (on 06/10/23) before requesting transfer to AM IOP. Pt discussed start date with clinician but was unable to attend as planned. 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 REFERRAL INFORMATION UPON DISCHARGE: Include new referrals & patient's existing Behavior Health providers providing continuity of care Must include specific agency AND provider name Outpatient Behavioral Health Counseling Services: None/Not applicable Psychiatry Services: None/Not Applicable Residential/Addiction Support Services: Narcotics Anonymous (NA) Other: None/NA Additional Comments (optional): Use the coping/refusal skills you learned in treatment to manage symptoms/relationships, Use mindfulness activities to assist with relieving triggers/symptoms, Maintain medication compliance, Continue regular attendance at 12-step or other self-help meetings, Obtain a Sponsor, Maintain regular contact with Sponsor, Continue abstinence from all mood-altering substances, Continue to create a sober support network of individuals, Remember to engage in self-care activities on a regular basis, and If you wish to return to services, please contact us at [phone] [facility] 06-29-2023 Note Outreach call: Clinician engaged in outreach call to Pt to determine Pt status in [facility] AM IOP program. Clinician informed by PM therapist that Pt would prefer morning hours. Pt did not respond to call. Clinician left message. Pt will be discharged from services. [facility] 06-10-2023 Note Pt was unable to eng age in IOP services through month of june. Pt will complete psychiatric evaluation in lieu of restarting PM IOP. [facility] 06-02-2023 Note Outpatient [facility] Individual or Family Therapy Progress Note Program: Addiction Medicine Intensive Outpatient Program Session Date: 06/02/2023 Start Time: 1:00 PM End Time: 2:00 PM Session Participant(s): Patient only Summary of Session: Pt completed psychiatric evaluation/biopsychosocial assessment with clinician. Therapeutic Intervention: Building rapport and engagement, Active listening, Supportive, and Psychoeducation Patient's Response to Intervention: Pt engaged and actively participated during assessment process. Pt reports that he would prefer evening IOP/ Mental Status Exam: Appearance: Appropriately dressed and groomed and healthy looking Mood: euthymic Affect: appropriate, congruent with mood, and full Behavior: Cooperative, Pleasant, appropriate, and engaging Speech: Appropriate and clear Cognition: Oriented x 4 Thought Process: Goal-directed Thought Content: No evidence of psychosis/delusional thought Progress Towards Goal(s): Minimal Additional Comments: NA Next Step: Continue with current services [facility] 04-30-2023 Note HNO ID: [id number] Author: LILIANA ANN RPh Service: Pharmacy Author Type: Pharmacist Type: Plan of Care Filed: 04/30/2023 15:43 Note Text: DISCHARGE MEDICATION REVIEW BY PHARMACY Patient Name: Pablito Soliman Account #: Data Unavailable Admission Date: 04/28/2023 Date of Contact: April 30, 2023 Time of Contact: 3:43 PM Medication list was reviewed by a Pharmacist for drug interactions or drug related problems:Yes Below is a summary of pharmacist recommendations discussed with LIP: No Recommendations at this time from Discharge Medication List. Liliana Ann RPh April 30, 2023 3:43 PM Medication List START taking these medications cefdinir 300 mg capsule Commonly known as: OMNICEF Take 1 capsule by mouth two times a day for 9 days. CONTINUE taking these medications FLOMAX 0.4 mg Generic drug: tamsulosin therapeutic multivitamin-minerals 9 mg iron-400 mcg tablet Commonly known as: THERA-M PLUS Where to Get Your Medications These medications were sent to [facility] [address] - [place] [address] - [address] [facility] - [phone] [facility] [facility] [address] cefdinir 300 mg capsule [facility] 04-29-2023 Note HNO ID: [id number] Author: LILIANA ANN RPh Service: Pharmacy Author Type: Pharmacist Type: Plan of Care Filed: 04/30/2023 10:03 Note Text: PHARMACY MEDICATION REVIEW Patient Name: Pablito Soliman : 1980 The following medications were updated within the HAT MEAS[employer]ER medication list: Medications ADDED to HAT MEASURER medication list tamsulosin (FLOMAX) 0.4 mg Take 0.4 mg by mouth once daily. therapeutic multivitamin-minerals (THERA-M PLUS) 9 mg iron-400 mcg tablet Take 1 tablet by mouth once daily. Medications CHANGED on HAT MEASURER medication list Medications REMOVED from HAT ME[employer]ER medication list citalopram (CELEXA) 20 mg tablet Course of therapy completed traMADol (ULTRAM) 50 mg tablet Course of therapy completed Additional comments: Verified medication information with e-scripts/dispense report and chart review. Confirmed medications with patient. Patient stated no longer taking Celexa and tramadol - removed from med list. Patient stated taking Flomax and multivitamin - added to med list. Patient stated taking tamsulosin -- found no current fill date. Required follow up actions for nursing: None The below information represents the best possible medication history: Yes Medication history completed by: Civil Engineering Technician: Maria Ines Radford (Superintendent Of Schools) Source of history: Patient: Reliability of source: Appears reliable, clearly identified: Medication name, Medication dose, Medication route, and Medication frequency, Pharmacy records: e-scripts/dispense report, and [facility] records Medication nonadherence identified: No barriers noted Reconciliation completed: Yes Completed by: Liliana Ann [facility] All HAT MEASURER medications addressed by LIP Patient interested in Bedside Delivery Services or using OP Pharmacy at discharge? Unable to assess Preferred outpatient pharmacy: [facility] [address] [place] [address] [address] [facility] [phone] Allergies: Codeine Prior to Admission Medications Prescriptions Last Dose Informant Patient Reported? Taking? tamsulosin (FLOMAX) 0.4 mg 04/28/2023 Yes Yes Sig: Take 0.4 mg by mouth once daily. therapeutic multivitamin-minerals (THERA-M PLUS) 9 mg iron-400 mcg tablet 04/28/2023 Yes Yes Sig: Take 1 tablet by mouth once daily. Facility-Administered Medications: None Maria Ines Radford (Superintendent Of Schools)[id number] 04/29/2023 [facility] 10-15-2021 History of Presen t illness Narrative Waiting on pt girlfriend. Meets phase 2 requirements documented in this encounter [facility] Work Phone: 10-15-2021 Hospital Discharg e instructions Lisbeth Keenan MD - 10/15/2021 8:22 AM EDT DISCHARGE INSTRUCTIONS Thank you very much for allowing me to participate in your care, it is truly a privilege. Below please see discharge orders that will help you during your recovery. Please do not hesitate to call the office at [phone] for any questions. After hours, the same number will allow you to reach the on-call surgeon. Call the office to schedule your post-operative appointment with Dr. Keenan or PA/YARN MAN for 2 weeks if not already scheduled. (May need to be seen before 2 weeks if stitches and/or drains present) Change bandages daily or more frequently if needed. Keep incisions clean with soap/ water daily. (Peroxide OK as well) Cover incision(s) as needed. Please remove the Steri-Strips 5 days after surgery. This includes any clear bandages and gauze placed in the navel, if applicable. If you have skin glue this will come off on its own Diet: Regular General guidelines for activity: activity as tolerated OK to shower in 24 hours You may have pain medicine ordered. Please take as directed/needed. Some discomfort, mild bruising, and swelling are not unusual; please call my office if you have any severe pain, hemorrhage, or high fever (over 101 F) Resume home medications as directed (see medication reconciliation sheet) Watch for signs of infection: Excessive warmth or bright redness around your incisions Leakage of bloody or cloudy fluid from you incisions Fever over 100.5 If you experience constipation Increase your water intake. Increase your activity; walking is best. An over the counter stool softener or mild laxative may be necessary if you still have not had a bowel movement after several days. Please call the office at [phone] for any questions and too make your post op appointment if needed. Thank you again for allowing me to participate in your care, and get well soon! Lisbeth Keenan MD documented [facility] encounter [facility] [employer] Work Phone: Evaluation note Diagnosis Soft tissue mass- Primary Disorders of soft tissue, unspecified documented in this encounter [facility] Work Phone: Evaluation note* Diagnosis Encounter for screening for malignant neoplasm of colon- Primary Special screening for malignant neoplasms, colon documented in this encounter [facility] for referral (narrative)* Outpatient Procedure (Routine) - Authorized Specialty Diagnoses / Procedures Referred By Chai t Referred To Contact [facility] Diagnoses Encounter for screening for malignant neoplasm of colon Procedures COLONOSCOPY SCREENING COLONOSCOPY SCREENING COLONOSCOPY FLX DX W/COLLJ SPEC WHEN PFRMD Sharda Nieves APRN.PILE HEADER [address] [place] [address] [facility] [address] [place] [address] Referral ID Status Reason Start Date Expiration Date Visits Requested Visits Authorized [id number] Authorized Auto-Generat ed Referral 10/26/2023 10/24/2024 1 [facility] Summary Purpose Family History No Family History Records FoundNo Family History Records FoundNo Family History Records FoundNo Family History Records FoundNo Family History Records Found Advance Directives Documents on File Type Date 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 ACP-Advance Directive ACP-Power of Keg Inspector Latest Code Status on File Code Status Date Activated Date Inactivated Comments Full Code 10/15/2021 6:24 AM Date Activated Date Inactivated Comments 04/29/2023 8:48 AM 04/30/2023 7:08 PM Question Answer Comments Full Code Order Discussed With: Patient Date Activated Date Inactivated Comments 04/29/2023 8:48 AM 04/30/2023 7:08 PM Question Answer Comments Full Code Order Discussed With: Patient Additional Source Comments (unrecognized sect ion and content) No Status Records FoundNo Status Records FoundNo Status Records FoundNo Status Records FoundNo Status Records Found INFORMATION SOURCE (unrecogn ized section and content) DATE CREATED AUTHOR 02/25/2018 [facility] DATE CREATED AUTHOR AUTHOR'S ORGANIZ ATION [facility] DATE CREATED AUTHOR AUTHOR'S ORGANIZ ATION 07/15/2023 [facility] DATE CREATED AUTHOR AUTHOR'S ORGANIZ ATION 10/27/2023 [facility] DATE CREATED AUTHOR AUTHOR'S ORGANIZ ATION 10/27/2023 [facility] Ordered Prescriptions (unrec ognized section and content) Prescription Sig Dispensed Refills Start Date End Da te oxyCODONE-acetaminophen (PERCOCET) 5-325 MG per tabletIndications:Soft tissue mass Take 1 tablet by mouth every 6 hours as needed for Pain for up to 5 days. Intended supply: 5 days. Take lowest dose possible to manage pain 5 tablet 0 10/15/2021 10/20/2021 Scheduled Active and Recently Administ ered Medications (unrecognized section and content) Medication Order 10/13/2021 10/14/2021 10/15/2021 acetaminophen (TYLENOL) tablet 1,000 mg (COMPLETED) 1,000 mg, Oral, ONCE, 1 dose, On Wed10/15/21 at 0645, Maximum dose of acetaminophen is 4000 mg from all sources in 24 hours. Do not administer if patient has taken tylenol <4 hours earlier. Do not give if contraindicated ie. patient has active liver disease or cirrhosis., Pre-op (day of surgery) 0644 (Given - Provid er: Nikky Mack RN) ceFAZolin (ANCEF) 2000 mg in dextrose 4 % 100 mL IVPB (premix) 2,000 mg, IntraVENous, BEAD PREPARER TO O.R., 1 dose, On Wed10/15/21 at 0645, Antimicrobial Indications: Surgical Prophylaxis, Administer within 1 hour prior to incision. Recommend to repeat in 3-4 hours after initial dose if still intra-op., Pre-op (day of surgery) 0645 (Due) famotidine (PEPCID) tablet 20 mg (COMPLETED) 20 mg, Oral, ONCE, 1 dose, On Wed10/15/21 at 0645, Pre-op (day of surgery) 0645 (Given - Provid er: Nikky Mack RN) LORazepam (ATIVAN) injection 0.5 mg 0.5 mg, IntraVENous, ONCE, 1 dose, On Wed10/15/21 at 0845, PACU only 0845 (Due) sodium chloride flush 0.9 % injection 5-40 mL 5-40 mL, IntraVENous, EVERY 12 HOURS SCHEDULED (2 times per day), First dose on Wed10/15/21 at 0900, Until Discontinued, For Line Patency: Peripheral IV = 5 mL; Midline or Central Line = 10 mL/lumen. If following IV push medication, administer flush at same rate as the IV push. Flush volume is determined by type of infusion therapy being given. For non-viscous solutions use: Peripheral IV = 5 mL Midline or Central Line = 10 mL/lumen For viscous solutions (i.e. blood components, parenteral nutrition, contrast media, or after obtaining blood sample) use: Peripheral IV = 10 mL Midline or Central Line = 20 mL/lumen, Pre-op (day of surgery) 0900 (Due)2100 (Due) sodium chloride flush 0.9 % injection 5-40 mL 5-40 mL, IntraVENous, EVERY 12 HOURS SCHEDULED (2 times per day), First dose on Wed10/15/21 at 0900, Until Discontinued, For Line Patency: Peripheral IV = 5 mL; Midline or Central Line = 10 mL/lumen. If following IV push medication, administer flush at same rate as the IV push. Flush volume is determined by type of infusion therapy being given. For non-viscous solutions use: Peripheral IV = 5 mL Midline or Central Line = 10 mL/lumen For viscous solutions (i.e. blood components, parenteral nutrition, contrast media, or after obtaining blood sample) use: Peripheral IV = 10 mL Midline or Central Line = 20 mL/lumen, PACU only 0900 (Due)2100 (Due) Continuous Medication Order 10/13/2021 10/14/2021 10/15/2021 lactated ringers infusion IntraVENous, at 50 mL/hr, CONTINUOUS, Starting on Wed10/15/21 at 0645, Upon admission to sameday - please start iv if patient does not have iv access. Use 500ml NS for patients on dialysis., Pre-op (day of surgery) 0647 (New Bag - Prov ider: Nikky Mack RN) lactated ringers infusion IntraVENous, at 50 mL/hr, CONTINUOUS, Starting on Wed10/15/21 at 0845, PACU only 0845 (Due) PRN Medication Order 10/13/2021 10/14/2021 10/15/2021 0.9 % sodium chloride bolus 500 mL (6.3 mL/kg), IntraVENous, at 1,000 mL/hr, Administer over 0.5 Hours, PRN, Anti-nausea, Starting on Wed10/15/21 at 0819, PACU only 0.9 % sodium chloride infusion IntraVENous, at 5-250 mL/hr, PRN, if patient receiving piggyback infusions and maintenance fluids are not ordered OR KVO fluids to protect IV site / prevent frequent line interruptions/ long duration, Starting on Wed10/15/21 at 0624, For piggyback infusion, administer at same rate as piggyback for a total of 25 mL. Enter 25 mL into dose field and piggyback rate into rate field of order. If piggyback is infusing at a rate less than 100 mL/hr, enter 25 mL into dose field and 100 mL/hr into rate field of order. For KVO fluids, enter rate of 20 mL/hr or less into rate field of order., Pre-op (day of surgery) ALPRAZolam (NIRAVAM) dissolvable tablet 0.25 mg 0.25 mg, Oral, PRN, Starting on Wed10/15/21 at 0624, Until Discontinued, Anxiety, Pre-op (day of surgery) diphenhydrAMINE (BENADRYL) injection 12.5 mg 12.5 mg, IntraVENous, ONCE PRN, 1 dose, Starting on Wed10/15/21 at 0819, Until Wed10/15/21 at 2359, Itching, PACU only hydrALAZINE (APRESOLINE) injection 5 mg(Linked Group 1) 5 mg, IntraVENous, EVERY 10 MIN PRN, 2 doses, Starting on Wed10/15/21 at 0819, Until Discontinued, High Blood Pressure, for SBP greater than 160 mmHg for 2 consecutive measurements taken from different sites, PRN for SBP > 160 for 2 consecutive measurements, and if one of the following conditions is met: 1) If IV labetolol is ineffective. 2) If HR is under 60. 3) If patient has heart block, COPD or asthma. If both labetalol and hydralazine ineffective, notify anesthesiologist. for use Sameday and, PACU only HYDROmorphone (DILAUDID) injection 0.25 mg HYDROmorphone (DILAUDID) 1.5mg IV is equivalent to morphine 10mg IV, 0.25 mg, IntraVENous, EVERY 5 MIN PRN, 4 doses, Starting on Wed10/15/21 at 0819, Until Discontinued, Pain Moderate (4-6), Phase I and Phase II- Initial therapy for moderate pain (4-6). Restricted to a 90 minute time frame starting when the patient can verbally state their pain score. If oral meds are utilized, do not return to initial therapy medications. SDS and, PACU only HYDROmorphone (DILAUDID) injection 0.5 mg HYDROmorphone (DILAUDID) 1.5mg IV is equivalent to morphine 10mg IV, 0.5 mg, IntraVENous, EVERY 5 MIN PRN, 4 doses, Starting on Wed10/15/21 at 0819, Until Discontinued, Pain Severe (7-10), Phase I or Phase II- Initial therapy for severe pain (7-10). Restricted to a 90 minute time frame starting when the patient can verbally state their pain score. If oral meds are utilized, do not return to initial therapy medications. SDS and, PACU only labetalol (NORMODYNE;TRANDATE) injection 5 mg(Linked Group 1) 5 mg, IntraVENous, EVERY 10 MIN PRN, 2 doses, Starting on Wed10/15/21 at 0819, Until Discontinued, High Blood Pressure, for SBP greater than 160 mmHg for 2 consecutive measurements taken from different sites., PRN for SBP >160 for 2 consecutive measurements, if HR is 60 or greater. If beta evelyn is contraindicated (HR less than 60, heart block, COPD or asthma) use hydralazine IV order. for use Sameday and, PACU only lidocaine PF 1 % injection 1 mL 1 mL, IntraDERmal, ONCE PRN, 1 dose, Starting on Wed10/15/21 at 0624, Until Wed10/15/21 at 2359, IV start, Pre-op (day of surgery) meperidine (DEMEROL) injection 12.5 mg 12.5 mg, IntraVENous, EVERY 5 MIN PRN, 4 doses, Starting on Wed10/15/21 at 0819, Until Discontinued, Shivering, , May give every 5 minutes to max of 50mg., PACU only ondansetron (ZOFRAN) injection 4 mg 4 mg, IntraVENous, ONCE PRN, 1 dose, Starting on Wed10/15/21 at 0819, Until Wed10/15/21 at 2359, Nausea, Initial antiemetic therapy., PACU only oxyCODONE (ROXICODONE) immediate release tablet 10 mg(Linked Group 2) 10 mg, Oral, PRN, 1 dose, Starting on Wed10/15/21 at 0819, Until Wed10/15/21 at 2359, Pain Severe (7-10), PHASE II, PACU only oxyCODONE (ROXICODONE) immediate release tablet 5 mg(Linked Group 2) 5 mg, Oral, PRN, 1 dose, Starting on Wed10/15/21 at 0819, Until Wed10/15/21 at 2359, Pain Moderate (4-6), PHASE II, PACU only sodium chloride flush 0.9 % injection 5-40 mL 5-40 mL, IntraVENous, PRN, Starting on Wed10/15/21 at 0624, Until Discontinued, Line Care, After every IV line use, For Line Patency: Peripheral IV = 5 mL; Midline or Central Line = 10 mL/lumen. If following IV push medication, administer flush at same rate as the IV push. Flush volume is determined by type of infusion therapy being given. For non-viscous solutions use: Peripheral IV = 5 mL Midline or Central Line = 10 mL/lumen For viscous solutions (i.e. blood components, parenteral nutrition, contrast media, or after obtaining blood sample) use: Peripheral IV = 10 mL Midline or Central Line = 20 mL/lumen, Pre-op (day of surgery) sodium chloride flush 0.9 % injection 5-40 mL 5-40 mL, IntraVENous, PRN, Starting on Wed10/15/21 at 0819, Until Discontinued, Line Care, After every IV line use, For Line Patency: Peripheral IV = 5 mL; Midline or Central Line = 10 mL/lumen. If following IV push medication, administer flush at same rate as the IV push. Flush volume is determined by type of infusion therapy being given. For non-viscous solutions use: Peripheral IV = 5 mL Midline or Central Line = 10 mL/lumen For viscous solutions (i.e. blood components, parenteral nutrition, contrast media, or after obtaining blood sample) use: Peripheral IV = 10 mL Midline or Central Line = 20 mL/lumen, PACU only Linked Groups Order Group 1: labetalol (NORMODYNE;TRANDATE) injection 5 mgJump to med 5 mg, IntraVENous, EVERY 10 MIN PRN, 2 doses, Starting on Wed10/15/21 at 0819, Until Discontinued, High Blood Pressure, for SBP greater than 160 mmHg for 2 consecutive measurements taken from different sites.
PRN for SBP >160 for 2 consecutive measurements, if HR is 60 or greater. If beta evelyn is contraindicated (HR less than 60, heart block, COPD or asthma) use hydralazine IV order. for use Sameday and
PACU only Or hydrALAZINE (APRESOLINE) injection 5 mgJump to med 5 mg, IntraVENous, EVERY 10 MIN PRN, 2 doses, Starting on Wed10/15/21 at 0819, Until Discontinued, High Blood Pressure, for SBP greater than 160 mmHg for 2 consecutive measurements taken from different sites
PRN for SBP > 160 for 2 consecutive measurements, and if one of the following conditions is met: 1) If IV labetolol is ineffective. 2) If HR is under 60. 3) If patient has heart block, COPD or asthma. If both labetalol and hydralazine ineffective, notify anesthesiologist. for use Sameday and
PACU only Group 2: oxyCODONE (ROXICODONE) immediate release tablet 5 mgJump to med 5 mg, Oral, PRN, 1 dose, Starting on Wed10/15/21 at 08, Until Wed10/15/21 at 2359, Pain Moderate (4-6)
PHASE II
PACU only Or oxyCODONE (ROXICODONE) immediate release tablet 10 mgJump to med 10 mg, Oral, PRN, 1 dose, Starting on Wed10/15/21 at 0819, Until Wed10/15/21 at 2359, Pain Severe (7-10)
PHASE II
PACU only Care Teams (unrecognized sec tion and content) Foundry Engineer Relationship Specialty Start Date End Date Yonas Johnson DO [address] [place] [id number] PCP - General 07/16/14 Foundry Engineer Relationship Specialty Start Date End Date Yonas Johnson MD [address] [place] [phone] PCP - General Family Medicine 12/09/22 Foundry Engineer Relationship Specialty Start Date End Date Yonas Johnson MD [address] [place] [phone] PCP - General Family Medicine 12/09/22 Source Comments (unrecognize d section and content) In the event this informatio n is protected by the Federal Confidentiality of Alcohol and Drug Abuse Patient Records regulations: The Federal rules restrict any use of the information to criminally investigate or prosecute any alcohol or drug abuse patient.[facility] the event this information is protected by the Federal Confidentiality of Alcohol and Drug Abuse Patient Records regulations: The Federal rules restrict any use of the information to criminally investigate or prosecute any alcohol or drug abuse patient[facility] Reason for Visit (unrecogniz ed section and content) Reason Comments Consult Reason Comments Patient Update FOR RECORDS PERTAINING TO PATIENTS WHO ARE OR HAVE BEEN ENROLLED IN A CHEMICAL DEPENDENCY/SUBSTANCEABUSE PROGRAM, SOME INFORMATION MAY BE OMITTED. This clinical summary was aggregated from multiple sources. Caution should be exercised in using it in the provision of clinical care. This summary normalizes information from multiple sources, and as a consequence, information in this document may materially change the coding, format and clinical context of patient data. In addition, data may be omitted in some cases. CLINICAL DECISIONS SHOULD BE BASED ON THE PRIMARY CLINICAL RECORDS. [employer] [facility]. provides no warranty or guarantee of the accuracy or completeness of information in this document.
[2023-12-03 20:39] VITALS: BP 122/82
--- NOTE | 2023-12-03 20:40 | EDS_ITS ---
HPI History of Present Illness Chief Complaint: Chest Other Narrative Narrative: Patient is a 43-year-old male with past medical history of hypercholesteremia, tobacco use who presents to the emergency department with a chief complaint of chest pain. Patient states that he has a burning sensation on the left side of his chest. He states that he has been sick for the past couple days as well. Patient denies coughing up any sputum and states that this is dry cough. He denies any recent sick contacts. Patient denies any recent travel history denies any history of blood clots. [facility] Medical History Substance abuse Smoker Migraines Home Medications ?Medication ?Instructions ?Recorded ?Last Taken ?Type simvastatin 40 mg/5 mL (8 mg/mL) 40 mg PO QHS 08/31/23 Unknown History oral suspension Allergy/AdvReac Type Severity Reaction Status Date / Time No Known Allergies Allergy Verified 12/03/23 18:40 Surgical History History of appendectomy History of cholecystectomy Social History Smoking Status: Heavy Smoker (>10/day) ROS ROS ED ROS Narrative Constitutional: Denies any fevers, chills, headaches, lightness, dizziness Eyes: Denies any changes double vision blurry vision Cardiovascular: Complains of chest burning on the left side as noted above denies palpitations Respiratory: Complains of cough denies shortness of breath or wheezing Abdomen: Denies any abdominal pain nausea vomit diarrhea : Denies any urinary symptoms Neurological: Denies any numbness, weakness, tingling Musculoskeletal: Denies back pain Skin: Denies any rashes or lesions EXAM Physical Exam Narrative Exam Narrative: General: Patient lying in bed rest comfortably did not appear to be in acute distress Head: Atraumatic, normocephalic Eyes: PERRL bilateral, EOMI bilateral, no conjunctival injection noted Neck: Soft, supple, trachea midline Cardiovascular: Regular rate and rhythm no murmurs gallops rubs noted Respiratory: Clear to auscultation bilaterally no rales rhonchi or wheezes noted Abdomen: Soft, nondistended, nontender to palpation Extremities: +5/5 strength noted in the bilateral lower extremities, no pedal edema on exam, radial pulses +2/4 in the bilateral per extremities Neurological: Patient following commands knew that he was at [facility] years 2023 Skin: Warm, dry, intact Const Vital Signs: 12/03/23 18:40 12/03/23 19:24 12/03/23 20:39 Temperature 98 F Temperature Source Oral Pulse Rate 85 Respiratory Rate 18 Respiratory Effort Normal Blood Pressure 157/97 H 122/82 H Blood Pressure Mean 117 95 Pulse Ox 99 Oxygen Delivery Method Room Air MDM MDM MDM Narrative Medical decision making narrative: Patient is a 43-year-old male who presented to the emergency department the chief complaint of left-sided chest pain and a cough. Patient will have a workup performed here on the differential diagnose clues but limited to ACS, pneumonia, viral infection. Once workup is obtained reviewed he will be reevaluated. Patient CBC was reviewed and showed no evidence of leukocytosis white blood count normal at 10.3, hemoglobin stable 14.7, platelet count was noted to be normal at 209. Patient sodium normal at 140, potassium normal 3.9, creatinine normal at 0.81. Patient's troponin was noted be normal at 4 with a delta troponin obtained normal at 4 as well. Patient's EKG reviewed by myself showed sinus rhythm with a rate of 80 bpm. Patient's chest x-ray reviewed by myself and by radiology which showed no acute cardiopulmonary processes. Patient's revised Craig score was noted to be 3 point indicating low risk for PE. To discuss results with the patient he would like to go home at this point time. He was advised to continue supportive care with ibuprofen and Tylenol for pain or fever control and push fluids. He was encouraged to follow-up with his primary care physician after setting. All question concerns answered he is discharged home in stable condition. Lab Data Labs: Laboratory Results - last 24 hr 12/03/23 12/03/23 19:54 20:47 WBC 10.3 RBC 4.69 Hgb 14.7 Hct 41.5 MCV 88.5 MCH 31.3 MCHC 35.4 RDW Std Deviation 41.9 RDW Coeff of Mitchell 13.1 Plt Count 209 MPV 11.0 Immature Gran % (Auto) 0.400 Neut % (Auto) 67.7 Lymph % (Auto) 21.1 Whitley % (Auto) 8.7 Eos % (Auto) 1.3 Baso % (Auto) 0.8 Absolute Neuts (auto) 7.0 Absolute Lymphs (auto) 2.18 Nucleated RBC % 0 Sodium 140 Potassium 3.9 Chloride 110 H Carbon Dioxide 27.0 Anion Gap 4 L BUN 14 Creatinine 0.81 Estim Creat Clear Calc 115.17 Est GFR (MDRD) Af Amer 132 Est GFR (MDRD) Non-Af 109 BUN/Creatinine Ratio 17.2 Glucose 88 Calcium 9.1 Troponin I High Sens 4 4 Radiography Diagnostic Testing: Clinical Impression(s) from Imaging Studies Chest X-Ray 12/03/23 20:13 IMPRESSION: No radiographic evidence of acute cardiopulmonary disease. Electronically Signed: Florentino Aparicio DO at 20:24 EDT Reading Location ID and State: [facility] / [place] Tel [phone], Service support , Discharge Plan Triage Chief Complaint: Chest Other ED Provider: Ramana Albert Dx/Rx/DC Orders Instructions: Chest Pain [facility] Prescriptions: No Action simvastatin 40 mg/5 mL (8 mg/mL) suspension 40 mg PO QHS Primary Care Provider: Arti Madrid Referrals: Arti Madrid DO [Primary Care Provider] - Activity Restrictions/Additional Instructions: Follow with your primary care physician in the outpatient setting. Return with worsening symptoms or any other concerns. Use ibuprofen and Tylenol for fever or pain control. Print Language: Omani Disposition Disposition: Home, Self Care
[2023-12-03 21:08] LABS: Troponin-I HS 4 pg/mL (3.0-78.0)
[2023-12-03 22:00] VITALS: BP 121/83
[2023-12-03 22:27] VITALS: BP 121/83; PULSE 85; RESP 18; TEMP 36.6; O2SAT 99
== END 2023-12-03 22:28 | disposition home or self-care (01) ==
PROVIDERS: Emergency Provider Emergency Medicine; PCP Family Medicine; Visit Provider Emergency Medicine
DX: R07.89 Other chest pain (principal); F17.200 Nicotine dependence, unspecified, uncomplicated
CPT/HCPCS: 71046; 80048; 84484; 85025; 87631; 93005; 99284; A4216

== ENCOUNTER 2024-05-15 15:01 | Emergency (ER) | payer MEDICAID, SELFPAY ==
[2024-05-15 15:02] VITALS: BP 136/84; PULSE 81; RESP 14; TEMP 36.6; O2SAT 95; BMI 26.6
--- NOTE | 2024-05-15 15:14 | EX.ED.VIS.EY ---
HPI History of Present Illness Chief Complaint: Eye Problem [facility] Medical History Substance abuse Smoker Migraines Home Medications ?Medication ?Instructions ?Recorded ?Last Taken ?Type simvastatin 40 mg/5 mL (8 mg/mL) 40 mg PO QHS 08/31/23 Unknown History oral suspension ciprofloxacin HCl 0.3 % eye drops 1 drp EACH EYE Q6H 5 days #10 mL 05/15/24 Unknown Rx ketorolac 0.4 % eye drops 1 drp LEFT EYE Q6H PRN eye pain 5 05/15/24 Unknown Rx days #20 mL Allergy/AdvReac Type Severity Reaction Status Date / Time No Known Allergies Allergy Verified 05/15/24 15:06 Family History no significant family his Surgical History History of appendectomy History of cholecystectomy Social History Smoking Status: Former smoker EXAM Physical Exam Const Vital Signs: 05/15/24 15:02 Temperature 98 F Temperature Source Oral Pulse Rate 81 Respiratory Rate 14 Blood Pressure 136/84 H Blood Pressure Mean 101 Pulse Ox 95 Oxygen Delivery Method [place] [facility] [place] Medical decision making narrative: HISTORY OF PRESENT ILLNESS: Chief complaint: Eye foreign body 43-year-old male presents concern for something flew into my left eye at work. He further states he was blowing debris when something fell like it hit his left eye. Notes scratchy sensation and sharp sensation since then. REVIEW OF SYSTEMS: Pertinent positives: Left eye scratching Pertinent negatives: Bleeding PHYSICAL EXAM: Nursing triage notes reviewed, Vital signs reviewed Constitutional: please see mdm HENT: MMM Eyes: Pupils equal round and reactive to light, Extraocular muscles intact, 20/20 bilaterally visual acuity, small corneal abrasion fluorescein staining, negative Ray sign. No obvious foreign bodies on lid eversion Neck: No stridor, no JVD, full neck ROM Lungs: Clear to auscultation, No wheezing or rales. No increased work of breathing, no conversational dyspnea, no accessory muscle use, no nasal flaring. No respiratory distress noted Heart: Regular rate and rhythm, No murmurs, No rubs and No gallops, 2+ distal pulses (radial, femoral, posterior tibial) in all extremities Abdomen: Soft, there is no tenderness, rigidity, rebound or guarding, no obvious peritoneal signs, no palpable pulsatile abdominal masses, no auscultated abdominal bruit Skin: No rash or lesions noted MEDICAL DECISION MAKING: Chief Complaint: please see HPI External records reviewed: Reviewed prior ED record. Patient presented with splashing lack of tenderness left eye at work in 2023. Patient was discharged with chemical injury left eye at that time. Factors affecting care: none Social determinants of health: none History obtained from others: none Consults: none [facility] Narrative: The patient was initially hemodynamically stable, afebrile and nontoxic-appearing. Exam with signs of corneal abrasion I considered the following differential diagnosis: Foreign body, globe rupture, corneal abrasion No sign of globe rupture or foreign body eye was irrigated with sterile saline. Prescribed topical ocular antibiotics as well as anti-inflammatories for antimicrobial prophylaxis and inflammation control. Discussed follow-up with ophthalmology the next billable appointment. Strict return precautions were discussed. The patient and/or family, caregivers express understanding. The patient and/or family, caregivers agrees with the plan. Shared decision making: I will have a discussion with the patient and or visitors regarding risk/benefits of further testing or admission. They will be made aware of of the risk/benefits inherent in this decision they will be given the opportunity to voice understanding. Total critical care time today provided was at least 0 minutes. This excludes separately billable procedures. Critical care time (if documented) is secondary to the patient having high probability of clinically significant/life threatening deterioration in the patient's condition which required my urgent intervention. Impression: 1. Left eye pain 2. Corneal abrasion Dispo: Discharge home This note was generated with [employer] dictation software. It may contain incorrect words, spelling, and punctuation that were not noted in review of the chart prior to signing. Discharge Plan Triage Chief Complaint: Eye Problem ED Provider: Patel Crandall Dx/Rx/DC Orders Instructions: ED Corneal Abrasion Prescriptions: New ciprofloxacin HCl 0.3 % drops 1 drp EACH EYE Q6H 5 Days Qty: 10 0RF Rx Instructions: administer while awake ketorolac 0.4 % drops 1 drp LEFT EYE Q6H PRN (Reason: eye pain) 5 Days Qty: 20 0RF No Action simvastatin 40 mg/5 mL (8 mg/mL) suspension 40 mg PO QHS Primary Care Provider: Arti Madrid Referrals: Bruce Lynne MD [Med Staff - Active Staff] - Activity Restrictions/Additional Instructions: Thank you for trusting us with your care today! Your exam is consistent with likely corneal abrasion. He will be prescribed antibiotic eyedrops as well as anti-inflammatory drops to take for pain as needed. Please return to the emergency department if your symptoms change or worsen. Please follow with your Ophthamology (Dr. Lynne) for further outpatient evaluation and management. Print Language: [place]orese Disposition Disposition: Home, Self Care
[2024-05-15] MEDS: Fluorescein 1 MG STRIP 1 STRIP EACH EYE (15:37)
[2024-05-15] MEDS: Tetracaine 0.5% Ophthalmic Bottle 1 DRP EACH EYE (15:37)
== END 2024-05-15 16:45 | disposition home or self-care (01) ==
PROVIDERS: Emergency Provider Emergency Medicine; PCP Family Medicine; Visit Provider Emergency Medicine
DX: S05.02XA Injury of conjunctiva and corneal abrasion without foreign body, left eye, initial encounter (principal); W44.8XXA Other foreign body entering into or through a natural orifice, initial encounter; Y99.0 Civilian activity done for income or pay; Z87.891 Personal history of nicotine dependence
CPT/HCPCS: 99282

== ENCOUNTER 2024-10-03 15:27 | Outpatient (CLI) | payer MEDICAID, SELFPAY ==
--- NOTE | 2024-10-02 12:50 | ETH_PTH ---
PATIENT: YOVANNY SOLIMAN LOC: [facility] U#:[id number] AGE/SX: 43/M ROOM: RE10/03/[address]: Dr. Terrence Souza MD : 1980 BED: DIS: 10/03/2024 SPEC #: [id number] RECD: 10/03/24 15:43 STATUS: MG MIRACLE #: [id number] SHIV: 10/02/24 12:[address]: Terrence Souza DEPT: SURGICAL PATHOLOGY RECD BY: David Pham ENTERED: 10/04/24 10:53 SP TYPE: ETH TISS OTHR DR: Dr. Arti Madrid DO Tissues: A - Ethmoid sinus, NOS Procedures: Decalcification bone/plaque Surgery Specimen Level III HEADER OPERATION: Septoplasty, submucous resection of inferior turbinates PRE-OP DIAGNOSIS: Snoring, obstructive sleep apnea, hypertrophy of nasal turbinates, nasal congestion, deviated septum septum TISSUE SUBMITTED: A- Nasal septum MICROSCOPIC DIAGNOSIS A. Nosal septum, septoplasty: Hyaline cartilage and trabecular bone with no specific pathologic change. MICROSCOPIC DESCRIPTION Slides are reviewed. GROSS DESCRIPTION A. Received in formalin labeled with the patient's name and date of . Designated as nasal septum is a 3.3 x 3.1 x 0.7 cm aggregate of melgoza-white focally congested irregular bone and cartilaginous tissue fragments. Title Lawyer sections are submitted in 1 cassette, following decalcification. DC 10/04/2024 CPT:[id number]
== END 2024-10-03 23:59 | disposition home or self-care (01) ==
LOC: LABSPEC 15:29
PROVIDERS: PCP Family Medicine; Referring Provider Otolaryngology; Visit Provider Otolaryngology
DX: J34.2 Deviated nasal septum (principal); J34.3 Hypertrophy of nasal turbinates; G47.33 Obstructive sleep apnea (adult) (pediatric)
CPT/HCPCS: 88305; 88304; 88311